=== PATIENT | male | born 1955 | race Caucasian/White ===

== ENCOUNTER 2023-02-24 11:04 | Inpatient (IN) | payer MEDICARE, SELFPAY ==
[2023-02-24] VITALS (23 sets, daily range): BP systolic 115–162; BP diastolic 74–113; PULSE 81–117; RESP 15–28; TEMP 36.4–36.8; O2SAT 90–98; BMI 20.3
--- NOTE | 2023-02-24 11:10 | XRR_ITS ---
PROCEDURE INFORMATION: Exam: XR Chest Exam date and time: 02/24/2023 11:22 AM Age: 67 years old Clinical indication: Shortness of breath; Additional info: SOB TECHNIQUE: Imaging protocol: Radiologic exam of the chest. Views: 1 view. Total images: 3 COMPARISON: No relevant prior studies available. FINDINGS: Lungs: Hyperinflation with prominent interstitial markings suggesting COPD changes. Pleural spaces: Unremarkable. No pleural effusion. No pneumothorax. Heart/Mediastinum: Unremarkable. No cardiomegaly. Vasculature: Atherosclerosis is evident. Bones/joints: Old right rib fractures are evident. Diffuse osteopenia noted. XR/XR chest 1V portable [id number] IMPRESSION: 1. Hyperinflation with prominent interstitial markings suggesting COPD changes. 2. No acute cardiopulmonary process.
[2023-02-24 11:52] LABS: Basophils # 0.1 10^3/uL (0.0-0.1); Basophils % 0.6 %; Eosinophils # 0.1 10^3/uL (0.0-0.8); Eosinophils % 1.1 %; Lymphocytes # 1.2 10^3/uL (0.8-4.8); Lymphocytes % 10.2 %; Mean Corpuscular HGB Conc 32.5 g/dL (30.0-36.0); Mean Corpuscular Hemoglobin 30.3 pg (28.0-34.0); Mean Corpuscular Volume 93.2 fl (80-94); Monocytes # 0.8 10^3/uL (0.2-0.9); Neutrophils # 9.38 10^3/uL (1.8-7.7); Neutrophils % 80.6 %; Nucleated Red Blood Cells % 0 %; Platelet Count 305 10^3/cmm (130-400); Red Blood Count 4.29 10^6/uL (4.1-5.3); Red Cell Distribution Width 13.4 % (12.1-15.1); White Blood Count 11.6 10^3/uL (4.0-10.0)
--- NOTE | 2023-02-24 12:20 | ECG_ITS ---
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 Measurements Intervals [place] Rate: 111 P: 75 HI: 115 QRS: 85 QRSD: 93 T: 81 QT: 349 QTc: 476 Interpretive Statements SINUS TACHYCARDIA WITH SHORT HI INTERVAL ABNORMAL RHYTHM ECG No previous ECG available for comparison Electronically Signed On 02-25-2023 0:19:14 CDT by Scott Alonso M.D. [id number]
[2023-02-24 12:28] LABS: Alanine Aminotransferase 10 U/L (0-41); Albumin Level 3.5 g/dL (3.5-5.2); Alkaline Phosphatase 101 U/L (40-130); Anion Gap 13.7 (5-19); Aspartate Amino Transferase 21 U/L (0-40); Blood Urea Nitrogen 14 mg/dL (8-23); Calcium 9.3 mg/dL (8.5-10.5); Carbon Dioxide 29 mmol/L (22-29); Chloride 102 mmol/L (98-107); Globulin 2.7 g/dL (1.3-4.6); Glomerular Filtration Rate 96.7 mL/min (90-130); Glucose 146 mg/dL (65-115); NT Pro B Type Natriuretic Pept 339 pg/mL (0-125); Osmolality Calculated 295 mOsm/kg (285-295); Potassium 3.7 mmol/L (3.5-5.1); Sodium 141 mmol/L (136-145); Total Bilirubin 0.4 mg/dL (0.15-1.2); Total Protein 6.2 g/dL (6.6-8.7)
--- NOTE | 2023-02-24 12:28 | PC.PHAR ---
pt states he only uses the 2 inhalers entered-the spiriva handihaler is not filled under pts names rx filled 09/25/22 for sue porter 1c daily pt states he uses up to tid-no meds pull up on ext med history for the pt
[2023-02-24 12:38] LABS: ABG PCO2 43.9 mmHg (35-45); ABG PH Result 7.43 (7.35-7.45); Base Excess ABG 3.8 mmol/L (-2.0-2.0); Blood Gas Allen Test Pos; Blood Gas Operator Identificat MONRO; Blood Gas Sample Site Brachial, right; Blood Gas Sample Type Arterial; Carboxyhemoglobin 1.7 %THgb (0.4-20.1); HCO3 ABG 28.8 mmol/L (22-26); HGB O2 Sat 93.1 % (95-100); Ionized Calcium Level - ABG 1.2 mmol/L (1.1-1.4); Methemoglobin 0.7 % (0.4-1.5); Oxygen Device ROOM AIR; Oxygen Saturation ABG 95.3; PO2 ABG 72.1 mmHg (80.0-100.0); Potassium Level - ABG 3.4 mmol/L (3.5-5.0)
--- NOTE | 2023-02-24 12:41 | ED_ITS ---
HPI - SOB/Dyspnea General: Chief Complaint: Shortness of Breath/Dyspnea Stated Complaint: SOB Time Seen by Provider: 02/24/23 11:43 Source: patient Mode of arrival: ambulatory History of Present Illness: HPI Narrative: 67-year-old male presents to the emergency room with complaints of shortness of breath. He states he is had COPD for 15 years he is only using Primatene Mist he has some Spiriva from her friend's prescription but he has not been using it regularly. He is not on any other medications. MD elicited complaint: shortness of breath and cough Pertinent past history: COPD Onset (ago): day(s) Timing: constant Severity: moderate Exacerbating factors: exertion and coughing Relieving factors: rest and bronchodilators Known history of: COPD Associated symptoms: Deny abdominal pain, chest congestion, chest pain, cough, diaphoresis, dizziness, extremity pain, fever(s), hemoptysis, lightheadedness, myalgias, nausea, palpitations, paresthesias, polydipsia, polyuria, rash, sense of impending doom, syncope or vomiting Treatment prior to arrival: bronchodilator (Primatene Mist) Review of Systems Const: Denies: fever(s) or diaphoresis Card: Reports: dyspnea on exertion; Denies: chest pain, palpitations, lightheadedness or syncope Resp: Reports: dyspnea, non-productive cough and wheezing; Denies: hemoptysis or chest congestion GI: Denies: abdominal pain, nausea or vomiting Musc: Denies: extremity pain Neuro: Denies: dizziness Endo: Denies: polyuria or polydipsia [facility] ED PFSH: Medical History (Updated 02/24/23 @ 15:49 by Gagandeep Calvert DO) COPD (chronic obstructive pulmonary disease) Social History (Updated 02/24/23 @ 12:44 by Gagandeep Calvert DO) Smoking and tobacco status: current every day smoker Physical Exam Const: GENERAL APPEARANCE: cooperative ORIENTATION/CONSCIOUSNESS: Yes awake, Yes oriented to person, Yes oriented to place and Yes oriented to time HENMT: COMMON NORMALS: normocephalic, atraumatic and hearing grossly normal bilaterally HEAD & SCALP: normocephalic and atraumatic Resp: COMMON NORMALS: normal respiratory effort, No retractions and No use of accessory muscles AUSCULTATION: rhonchi and wheezes Cardio: COMMON NORMALS: regular rate, regular rhythm and No murmurs present (Cardio) RATE: regular rate RHYTHM: regular rhythm GI: COMMON NORMALS: Soft to palpation and No hepatosplenomegaly present AUSCULTATION: Yes normoactive bowel sounds PALPATION: Yes Soft to palpation, No Tenderness to palpation present (GI), No Guarding due to palpation present (GI) and Yes No hepatosplenomegaly present Extremity: COMMON NORMALS: normal to inspection, capillary refill normal, no clubbing, cyanosis or edema, no calf tenderness and no pedal edema Neuro: SENSORIUM/ORIENTATION: Yes oriented to person, Yes oriented to place and Yes oriented to time Skin: COMMON NORMALS: no rashes or lesions noted GENERAL SKIN EXAM: no rashes or lesions noted Course Vital Signs: Vital signs: Vital Signs Temperature 97.5 F L 02/24/23 11:34 Pulse Rate 87 02/24/23 15:30 Respiratory Rate 19 H 02/24/23 15:30 Blood Pressure 149/97 02/24/23 15:30 Pulse Oximetry 92 02/24/23 15:30 Oxygen Delivery Me thod Room Air 02/24/23 12:42 MDM - SOB/Dyspnea Medical Decision Making Exacerbation of COPD he is not requiring oxygen. He had moderate improvement with his steroids and nebulizer. He is on no maintenance program as an outpatient he is only been using Primatene Mist for rescue. Suspect he will need home O2 however when we tried to evaluate him he was not able to get up and walk. Patient be admitted for COPD exacerbation discussed Dr. Michaels orders written. Will cover with antibiotics but there is no evidence of pneumonia or pneumothorax on the chest x-ray. EKG shows no acute changes. Medical Records I reviewed the patient's medical records. Lab Data I reviewed the patient's lab results. 02/24/23 11:38 02/24/23 11:38 Labs/Radiology: Radiology Impressions Chest X-Ray 02/24/23 11:10 IMPRESSION: 1. Hyperinflation with prominent interstitial markings suggesting COPD changes. 2. No acute cardiopulmonary process. Laboratory Results WBC 11.6 10^3/uL (4.0-10.0) H 02/24/23 11:38 RBC 4.29 10^6/uL (4.1-5.3) 02/24/23 11:38 Hgb 13.0 g/dL (11.7-16.6) 02/24/23 11:38 Hct 40.0 % (42.0-52.0) L 02/24/23 11:38 MCV 93.2 fl (80-94) 02/24/23 11:38 MCH 30.3 pg (28.0-34.0) 02/24/23 11:38 MCHC 32.5 g/dL (30.0-36.0) 02/24/23 11:38 RDW 13.4 % (12.1-15.1) 02/24/23 11:38 Plt Count 305 10^3/cmm (130-400) 02/24/23 11:38 MPV 9.0 fL (7.4-10.4) 02/24/23 11:38 Neut % (Auto) 80.6 % 02/24/23 11:38 Lymph % (Auto) 10.2 % 02/24/23 11:38 Richardson % (Auto) 7.0 % 02/24/23 11:38 Eos % (Auto) 1.1 % 02/24/23 11:38 Baso % (Auto) 0.6 % 02/24/23 11:38 Neut # (Auto) 9.38 10^3/uL (1.8-7.7) H 02/24/23 11:38 Lymph # (Auto) 1.2 10^3/uL (0.8-4.8) 02/24/23 11:38 Richardson # (Auto) 0.8 10^3/uL (0.2-0.9) 02/24/23 11:38 Eos # (Auto) 0.1 10^3/uL (0.0-0.8) 02/24/23 11:38 Baso # (Auto) 0.1 10^3/uL (0.0-0.1) 02/24/23 11:38 Nucleated RBC % (auto) 0 % 02/24/23 11:38 Nucleated RBCs # 0.0 /100WBC 02/24/23 11:38 Specimen Type Arterial 02/24/23 12:25 Sample Site Brachial, right 02/24/23 12:25 ABG pH 7.43 (7.35-7.45) 02/24/23 12:25 ABG pCO2 43.9 mmHg (35-45) 02/24/23 12:25 ABG pO2 72.1 mmHg (80.0-100.0) L 02/24/23 12:25 ABG HCO3 28.8 mmol/L (22-26) H 02/24/23 12:25 ABG O2 Saturation 95.3 02/24/23 12:25 ABG Base Excess 3.8 mmol/L (-2.0-2.0) H 02/24/23 12:25 Ivan Test Pos 02/24/23 12:25 A-a O2 Gradient 3.0 mmHg (5-10) L 02/24/23 12:25 Hematocrit 40.0 % (42-52) L 02/24/23 12:25 Hgb O2 Saturation 93.1 % (95-100) L 02/24/23 12:25 Carboxyhemoglobin 1.7 %THgb (0.4-20.1) 02/24/23 12:25 Methemoglobin 0.7 % (0.4-1.5) 02/24/23 12:25 Total Hemoglobin 13.0 g/dL (14-18) L 02/24/23 12:25 Sodium 141.0 mmol/L (131-143) 02/24/23 12:25 Potassium 3.4 mmol/L (3.5-5.0) L 02/24/23 12:25 Glucose 132.0 mg/dL (70-115) H 02/24/23 12:25 Ionized Calcium 1.2 mmol/L (1.1-1.4) 02/24/23 12:25 O2 Delivery Device Room air 02/24/23 12:25 FiO2 21.0 % 02/24/23 12:25 Transcription Coordinator ID Monro 02/24/23 12:25 Sodium 141 mmol/L (136-145) 02/24/23 11:38 Potassium 3.7 mmol/L (3.5-5.1) 02/24/23 11:38 Chloride 102 mmol/L (98-107) 02/24/23 11:38 Carbon Dioxide 29 mmol/L (22-29) 02/24/23 11:38 Anion Gap 13.7 (5-19) 02/24/23 11:38 BUN 14 mg/dL (8-23) 02/24/23 11:38 Creatinine 0.8 mg/dL (0.7-1.2) 02/24/23 11:38 GFR Calculation 96.7 mL/min (90-130) 02/24/23 11:38 Glucose 146 mg/dL (65-115) H 02/24/23 11:38 Calculated Osmolality 295 mOsm/kg (285-295) 02/24/23 11:38 Calcium 9.3 mg/dL (8.5-10.5) 02/24/23 11:38 Total Bilirubin 0.4 mg/dL (0.15-1.2) 02/24/23 11:38 AST 21 U/L (0-40) 02/24/23 11:38 ALT 10 U/L (0-41) 02/24/23 11:38 Alkaline Phosphatase 101 U/L (40-130) 02/24/23 11:38 NT-Pro-B Natriuret Pep 339 pg/mL (0-125) H 02/24/23 11:38 Total Protein 6.2 g/dL (6.6-8.7) L 02/24/23 11:38 Albumin 3.5 g/dL (3.5-5.2) 02/24/23 11:38 Globulin 2.7 g/dL (1.3-4.6) 02/24/23 11:38 Urine Color Yellow (Yellow) 02/24/23 13:10 Urine Appearance Clear (CLEAR) 02/24/23 13:10 Urine pH 6 (5-7) 02/24/23 13:10 Ur Specific [place] 1.020 (1.005-1.030) 02/24/23 13:10 Urine Protein Neg (Negative) 02/24/23 13:10 Urine Glucose (UA) Norm (Normal) 02/24/23 13:10 Urine Ketones Negative (Negative) 02/24/23 13:10 Urine Blood 2+ (Negative) H 02/24/23 13:10 Urine Nitrate Negative (Negative) 02/24/23 13:10 Urine Bilirubin Neg (Negative) 02/24/23 13:10 Urine Urobilinogen Norm mg/dL (Negative) 02/24/23 13:10 Ur Leukocyte Esterase Negative (Negative) 02/24/23 13:10 Urine RBC None /hpf (0-2) 02/24/23 13:10 Urine WBC Rare /hpf (0-5) 02/24/23 13:10 Ur Squamous Epith Cells None /hpf (0-5) 02/24/23 13:10 Amorphous Sediment Not Reportable 02/24/23 13:10 Urine Bacteria Trace /hpf (NONE) 02/24/23 13:10 Discharge Plan Discharge Patient Disposition: Admitted As Inpatient Clinical Impression: Acute exacerbation of chronic obstructive airways disease Prescriptions: No Action Spiriva with HandiHaler 18 mcg Capsule, W/Inhalation Device 1 cap INHALATION .UP TO TID PHARM COM Primatene Mist 0.125 mg/actuation Hfa Aerosol Inhaler 1 puff INHALATION Q4H PRN (Reason: unknown) Rx Instructions: may repeat once after 1 minute; do not exceed 8 inhalations per 24 hrs Patient Instructions: Opioid Safety, Pain Management Coding Level of Care Code ED Waterproofing Mixer for 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
[2023-02-24] MEDS: ipratropium-albuterol 3 mL Neb INHALATION (12:42)
[2023-02-24] MEDS: sodium chloride 0.9% 1,000 ML 999 ML IV (13:12)
--- NOTE | 2023-02-24 13:17 | PC.NURSE ---
Pt hooked up to continuous bedside cardiac monitoring.
[2023-02-24 14:15] LABS: Add Urine Microscopic? YES; Bilirubin Urine Neg (Negative); Blood Urine 2+ (Negative); Glucose Urine UA Norm (Normal); Ketones Urine Negative (Negative); Leukocyte Esterase Urine Negative (Negative); Nitrate Urine Negative (Negative); Protein Urine Neg (Negative); Urine Appearance Clear (CLEAR); Urine Color Yellow (Yellow); Urobilinogen Urine Norm (Negative); pH Urine 6 (5-7)
[2023-02-24 14:29] LABS: WBC Urine RARE /hpf (0-5)
[2023-02-24 14:30] LABS: Bacteria Urine TRACE /hpf
--- NOTE | 2023-02-24 16:29 | PM.HP ---
Providers/Chief Complaint Admitting Physician: Zoya Michaels MD Chief Complaint: SOB History of Present Illness Axel Landry is a 67 year old homeless male who presented to the hospital with 3 to 4 days of worsening cough, dyspnea. States that at baseline he has COPD and he has a Spiriva inhaler which has not been helping him. He is a chronic smoker. Has a past history of COPD. Denies any fever or chills. Denies any chest pain. Denies any past history of PE. ABG performed today 7.4 days/43.9/72.1/28.8. No orthopnea or PND. States that currently he is not able to even walk 10 feet without getting short of breath. Has a new oxygen requirement today of 2 L/min. Review of Systems General: Reports: 10 or more systems reviewed and unremarkable except in HPI and below Const: Denies: fever(s), chills or body aches Eyes: Denies: change in vision, blurry vision or photophobia ENMT: Reports: hoarseness; Denies: throat pain, enlarged tonsils, odynophagia or nasal congestion Card: Denies: chest pain, palpitations, irregular heart rhythm, edema, swelling of feet/ankles, lightheadedness, pre-syncope, dyspnea on exertion or orthopnea Resp: Denies: dyspnea, productive cough, non-productive cough, wheezing, stridor, pain on inspiration, change in phlegm color, hemoptysis or chest congestion GI: Denies: abdominal pain, nausea, vomiting, hematemesis, coffee ground emesis, dysphagia, heartburn, diarrhea, constipation, GI cramping, change in stool character, hematochezia or melena : Denies: flank pain, dysuria, urinary frequency, urinary urgency, urinary hesitancy or hematuria Musc: Denies: neck pain, back pain, extremity pain, joint swelling, joint warmth or deformity Neuro: Denies: headache(s), numbness in extremities, weakness in extremities, sensory changes, difficulty walking, frequent falls, dizziness, vertigo, behavioral changes, Slurred speech present or seizure-like activity Psych: Denies: anxiety, depression, suicidal ideation or homicidal ideation Endo: Denies: polyuria, polydipsia, tired all the time, cold intolerance or hot flashes Adrian/Lymph: Denies: easy bruising or easy bleeding Medications/Allergies Home Medications Medication Instructions Recorded Confirmed Last Taken Type epinephrine 0.125 mg/actuation 1 puff inhalation Q4H PRN unknown 02/24/23 02/24/23 Unknown History aerosol inhaler (Primatene Mist) tiotropium bromide 18 mcg capsule 1 cap inhalation .UP TO TID PHARM 02/24/23 02/24/23 Unknown History with inhalation device (Spiriva COM with HandiHaler) Allergies Allergy/AdvReac Type Severity Reaction Status Date / Time No Known Allergies Allergy Verified 02/24/23 11:34 PFSH Acute PFSH: Medical History COPD (chronic obstructive pulmonary disease) Social History Smoking and tobacco status: current every day smoker Vitals/I&O/Wt Last Vital Signs Temp 97.5 F L 02/24/23 11:34 Pulse 84 02/24/23 15:45 Resp 23 H 02/24/23 15:45 BP 134/80 02/24/23 15:45 Pulse Ox 93 02/24/23 15:45 O2 Del Method Room Air 02/24/23 12:42 Weight last 48 hrs Weight 58.967 kg Physical Exam Narrative: General: No acute distress, AO x3 disheveled male HEENT: PERRLA, pupils bilaterally equal and reactive, pallors not present Chest: Scattered wheezing to auscultation bilaterally CVS: S1-S2 regular, no murmurs, no tachycardia, no gallops, no rubs Abdomen: Soft, nontender, no organomegaly, bowel sounds present Neuro: No focal deficits, no facial deformity, AO x3, power 5/5 in all limbs Data 02/24/23 11:38 02/24/23 11:38 A&P Assessment and plan (1) Acute exacerbation of chronic obstructive airways disease: Patient presenting today with worsening dyspnea, shortness of breath over the last 4 to 5 days. Denies any fever. Chest x-ray does not show any gross consolidation. Noted to have hyperinflated lungs with prominent bronchial markings per my assessment, most likely to be emphysematous changes. He continues to smoke. Admitted in view of acute on chronic COPD exacerbation. Scheduled nebulization with DuoNeb and budesonide. Dexamethasone 4 mg IV every 12 hours. Check D-dimer. Check EKG Denies any current chest pain. Nicotine patch due to history of nicotine dependence. Attestations Medical Necessity Statement*: Anticipate less than 2 midnight stay for COPD exacerbation Coding Level of Care Code Acute Code for [facility] Diagnoses Acute exacerbation of chronic obstructive airways disease J44.1
--- NOTE | 2023-02-24 17:18 | PC.NURSE ---
CIGARETTES AND [address] MAGISTRATE LOCKED IN [facility]
--- NOTE | 2023-02-24 17:30 | ECG_ITS ---
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 Measurements Intervals [place] Rate: 87 P: 86 NV: 149 QRS: 72 QRSD: 92 T: 79 QT: 373 QTc: 451 Interpretive Statements SINUS RHYTHM WITH SINUS ARRHYTHMIA INTERPRETATION BASED ON A DEFAULT AGE OF 40 YEARS Compared to ECG 02/24/2023 12:27:17 Sinus tachycardia no longer present Short NV interval no longer present Electronically Signed On 02-25-2023 14:21:04 CDT by Nathan Covarrubias M.D. [id number]
[2023-02-24 17:38] LABS: D Dimer 0.69 ug/mIFEU (0-0.59)
[2023-02-24 17:59] LABS: Troponin T (5th) Once 9 ng/L (0-15)
[2023-02-24] MEDS: sodium chloride 0.9% 1,000 ML 100 ML IV (18:09)
--- NOTE | 2023-02-24 18:43 | PC.NURSE ---
PATIENT HAS DONE WELL SINCE ARRIVING TO THE FLOOR. TOLERATING DIET. CURRENTLY ON 2L OF OXYGEN. RESTING IN BED WATCHING TV.
[2023-02-24 19:14] LABS: Adenovirus Not Detected (NOT DETECT); Chlamydia Pneumoniae Not Detected (NOT DETECT); Coronavirus 229E,HKU1,NL63,OC4 Not Detected (NOT DETECT); Human Metapneumovirus Not Detected (NOT DETECT); Human Rhinovirus/Enterovirus Not Detected (NOT DETECT); Influenza A Not Detected (NOT DETECT); Influenza A H1 Not Detected (NOT DETECT); Influenza A H1-2009 Not Detected (NOT DETECT); Influenza A H3 Not Detected (NOT DETECT); Influenza B Not Detected (NOT DETECT); Mycoplasma Pneumoniae Not Detected (NOT DETECT); Parainfluenza Virus Type 1 Not Detected (NOT DETECT); Parainfluenza Virus Type 2 Not Detected (NOT DETECT); Parainfluenza Virus Type 3 Not Detected (NOT DETECT); Parainfluenza Virus Type 4 Not Detected (NOT DETECT); Respiratory Syncytial Virus A Not Detected (NOT DETECT); Respiratory Syncytial Virus B Not Detected (NOT DETECT); SARS-COV-2 Not Detected (NOT DETECT)
[2023-02-25] VITALS (11 sets, daily range): BP systolic 110–129; BP diastolic 65–86; PULSE 76–109; RESP 15–24; TEMP 36.4–36.8; O2SAT 95–99
[2023-02-25] MEDS: dexamethasone 4 mg/mL INJ IVP ×2 (01:26→14:35)
[2023-02-25] MEDS: sodium chloride 0.9% 1,000 ML 100 ML IV (01:27)
--- NOTE | 2023-02-25 04:24 | PC.NURSE ---
LEGAL DIRECTOR in patient's room to do vital signs. Patient states to LEGAL DIRECTOR how many more times are you gonna come in here and do these damn tests?
[2023-02-25 05:32] LABS: Basophils % 0.1 %; Hematocrit 34.1 % (42.0-52.0); Lymphocytes # 0.7 10^3/uL (0.8-4.8); Lymphocytes % 9.8 %; Mean Corpuscular HGB Conc 32.3 g/dL (30.0-36.0); Mean Corpuscular Hemoglobin 30.5 pg (28.0-34.0); Mean Corpuscular Volume 94.5 fl (80-94); Mean Platelet Volume 9.3 fL (7.4-10.4); Monocytes # 0.1 10^3/uL (0.2-0.9); Monocytes % 1.6 %; Neutrophils % 87.6 %; Nucleated Red Blood Cells % 0 %; Platelet Count 289 10^3/cmm (130-400); Red Blood Count 3.61 10^6/uL (4.1-5.3); Red Cell Distribution Width 13.7 % (12.1-15.1); White Blood Count 6.9 10^3/uL (4.0-10.0)
[2023-02-25 06:00] LABS: Alanine Aminotransferase 7 U/L (0-41); Albumin Level 2.8 g/dL (3.5-5.2); Alkaline Phosphatase 77 U/L (40-130); Aspartate Amino Transferase 14 U/L (0-40); Blood Urea Nitrogen 13 mg/dL (8-23); Calcium 8.2 mg/dL (8.5-10.5); Carbon Dioxide 25 mmol/L (22-29); Chloride 109 mmol/L (98-107); Globulin 1.9 g/dL (1.3-4.6); Glomerular Filtration Rate 134.8 mL/min (90-130); Glucose 114 mg/dL (65-115); Osmolality Calculated 293 mOsm/kg (285-295); Sodium 141 mmol/L (136-145); Total Bilirubin 0.3 mg/dL (0.15-1.2); Total Protein 4.7 g/dL (6.6-8.7)
[2023-02-25] MEDS: budesonide 0.5 mg/2 mL Neb INHALATION ×2 (07:39→20:14)
[2023-02-25] MEDS: ipratropium-albuterol 3 mL Neb INHALATION ×4 (07:39→20:14)
[2023-02-25] MEDS: nicotine 21 mg Patch 1 PATCH TRANSDERMA (10:43)
[2023-02-25] MEDS: pantoprazole DR 40 mg Tablet PO (10:43)
[2023-02-25] MEDS: azithromycin 250 mg Tablet 500 MG PO (10:48)
--- NOTE | 2023-02-25 22:47 | PM.PN ---
Subjective Subjective: no new complaints today, continues to have wheezing and bouts of cough. Still with significant wheezing Vitals/I&O/Wt Last Vital Signs Temp 98.2 F 02/25/23 19:59 Pulse 99 02/25/23 20:19 Resp 17 02/25/23 20:14 BP 120/65 02/25/23 19:59 Pulse Ox 95 02/25/23 20:14 O2 Del Method Nasal Cannula 02/25/23 20:14 O2 Flow Rate 2 02/25/23 20:14 02/25/23 02/25/23 02/25/23 06:59 14:59 22:59 Intake Total 730 / 1950 1360 / 1360 Output Total 200 / 300 100 / 100 225 / 325 Balance 530 / 1650 1260 / 1260 -225 / 1035 Weight last 48 hrs Weight 58.967 kg Physical Exam Narrative: General: No acute distress, AO x3 HEENT: PERRLA, pupils bilaterally equal and reactive, pallors not present Chest: wheezing to exam B/L CVS: S1-S2 regular, no murmurs, no tachycardia, no gallops, no rubs Abdomen: Soft, nontender, no organomegaly, bowel sounds present Neuro: No focal deficits, no facial deformity, AO x3, power 5/5 in all limbs Data 02/25/23 04:34 02/25/23 04:34 A&P Assessment and plan (1) Acute exacerbation of chronic obstructive airways disease: Patient presenting with worsening dyspnea, shortness of breath over the last 4 to 5 days. Denies any fever. Chest x-ray does not show any gross consolidation. Noted to have hyperinflated lungs with prominent bronchial markings per my assessment, most likely to be emphysematous changes. He continues to smoke. Admitted in view of acute on chronic COPD exacerbation. Scheduled nebulization with DuoNeb and budesonide to continue Dexamethasone 4 mg IV every 12 hours to continue Age appropriate D-dimer EKG without any acute ST-T wave changes Nicotine patch due to history of nicotine dependence. Add ceftriaxone 1g iv q24h for possibility of acute bronchitis contributing Needs further iv abx, iv steroids Attestations Medical Necessity Statement*: continued admission for iv steroids, abx and scheduled nebulization Coding Level of Care Code Acute Code for g [facility]wd Diagnoses Acute exacerbation of chronic obstructive airways disease J44.1
[2023-02-25] MEDS: cefTRIAXone 1,000 MG in sodium chloride 0.9% (plus) 50 ML 100 MG IV (23:28)
[2023-02-25] MEDS: benzonatate 100 mg Capsule PO (23:35)
[2023-02-25] MEDS: guaiFENesin-dextromethorphan UDC 10 mL 5 ML PO (23:35)
[2023-02-26] VITALS (9 sets, daily range): BP systolic 120–160; BP diastolic 79–95; PULSE 77–108; RESP 16–26; TEMP 36.4; O2SAT 93–98
[2023-02-26] MEDS: dexamethasone 4 mg/mL INJ IVP ×2 (01:41→12:40)
[2023-02-26] MEDS: guaiFENesin-dextromethorphan UDC 10 mL 5 ML PO ×3 (08:16→20:12)
[2023-02-26] MEDS: benzonatate 100 mg Capsule PO ×2 (08:16→16:09)
[2023-02-26] MEDS: nicotine 21 mg Patch 1 PATCH TRANSDERMA (08:17)
[2023-02-26] MEDS: azithromycin 250 mg Tablet 500 MG PO (08:17)
[2023-02-26] MEDS: pantoprazole DR 40 mg Tablet PO (08:17)
[2023-02-26] MEDS: ipratropium-albuterol 3 mL Neb INHALATION ×4 (08:58→21:17)
[2023-02-26] MEDS: budesonide 0.5 mg/2 mL Neb INHALATION ×2 (08:58→21:17)
--- NOTE | 2023-02-26 16:11 | PC.NURSE ---
Patient refused to let LOGISTICS MANAGEMENT SPECIALIST or nurse do 1600 vitals
--- NOTE | 2023-02-26 16:21 | PM.PN ---
Subjective Subjective: he continues to have significant wheezing. he is more short of breath today. Medications: Reviewed: Yes Vitals/I&O/Wt Last Vital Signs Temp 97.5 F L 02/26/23 12:00 Pulse 105 H 02/26/23 12:00 Resp 20 H 02/26/23 12:00 BP 142/92 02/26/23 12:00 Pulse Ox 93 02/26/23 12:00 O2 Del Method Nasal Cannula 02/26/23 12:00 O2 Flow Rate 2 02/26/23 11:55 02/26/23 02/26/23 02/26/23 06:59 14:59 22:59 Intake Total 50 / 1410 480 / 480 Output Total 400 / 725 200 / 200 Balance -350 / 685 280 / 280 Physical Exam Narrative: General: No acute distress, AO x3 HEENT: PERRLA, pupils bilaterally equal and reactive, pallors not present Chest: wheezing to exam B/L CVS: S1-S2 regular, no murmurs, no tachycardia, no gallops, no rubs Abdomen: Soft, nontender, no organomegaly, bowel sounds present Neuro: No focal deficits, no facial deformity, AO x3, power 5/5 in all limbs Data 02/25/23 04:34 02/25/23 04:34 A&P Assessment and plan (1) Acute exacerbation of chronic obstructive airways disease: Patient presenting with worsening dyspnea, shortness of breath Chest x-ray does not show any gross consolidation. Noted to have hyperinflated lungs with prominent bronchial markings per my assessment, most likely to be emphysematous changes. He continues to smoke. Admitted in view of acute on chronic COPD exacerbation. Continues to have significant wheezing Scheduled nebulization with DuoNeb and budesonide to continue add magnesium x 1 today Trop baseline normal, no acute EKG changes Dexamethasone 4 mg IV every 12 hours---> increase to 8mg iv q12h Age appropriate D-dimer EKG without any acute ST-T wave changes Nicotine patch due to history of nicotine dependence. Continue ceftriaxone 1g iv q24h for possibility of acute bacterial bronchitis Attestations Medical Necessity Statement*: Needs further iv abx, iv steroids Coding Level of Care Code Acute Code for [facility] Fwd Diagnoses Acute exacerbation of chronic obstructive airways disease J44.1
[2023-02-26] MEDS: dexamethasone 10 mg/mL INJ 8 MG IVP (17:00)
[2023-02-26] MEDS: cefTRIAXone 1,000 MG in sodium chloride 0.9% (plus) 50 ML 100 MG IV (22:31)
[2023-02-27] VITALS (9 sets, daily range): BP systolic 130–145; BP diastolic 77–88; PULSE 82–95; RESP 15–18; TEMP 36.4–36.9; O2SAT 87–98
[2023-02-27] MEDS: dexamethasone 10 mg/mL INJ 8 MG IVP (04:51)
[2023-02-27] MEDS: budesonide 0.5 mg/2 mL Neb INHALATION (08:45)
[2023-02-27] MEDS: ipratropium-albuterol 3 mL Neb INHALATION ×2 (08:46→11:54)
[2023-02-27] MEDS: nicotine 21 mg Patch 1 PATCH TRANSDERMA (09:35)
[2023-02-27] MEDS: azithromycin 250 mg Tablet 500 MG PO (09:36)
[2023-02-27] MEDS: pantoprazole DR 40 mg Tablet PO (09:36)
[2023-02-27] MEDS: guaiFENesin-dextromethorphan UDC 10 mL 5 ML PO (09:42)
[2023-02-27] MEDS: benzonatate 100 mg Capsule PO (09:43)
--- NOTE | 2023-02-27 15:48 | PM.DCS ---
Discharge Providers Date of Admission: 02/26/23 16:22 Date of Discharge: February 27, 2023 Attending Provider at Admission: Zoya Michaels MD Attending Provider at Discharge: Zoya Michaels MD Diagnoses at Discharge Discharge Diagnosis (1) Acute exacerbation of chronic obstructive airways disease: Status: Acute Reason for Visit Reason for Visit: SOB Brief History: Axel Landry is a 67 year old homeless male who presented to the hospital with 3 to 4 days of worsening cough, dyspnea.? States that at baseline he has COPD and he has a Spiriva inhaler which has not been helping him.? He is a chronic smoker.? Has a past history of COPD.? Denies any fever or chills.? Denies any chest pain.? Denies any past history of PE. currently he is not able to even walk 10 feet without getting short of breath.? Has a new oxygen requirement today of 2 L/min. Hospital Course Hospital Course He was admitted for acute exacerbation of chronic obstructive airways disease. Chest x-ray does not show any gross consolidation. Noted to have hyperinflated lungs with prominent bronchial markings per my assessment, most likely to be emphysematous changes. He continues to smoke. He received treatment with nebulization with DuoNeb and budesonide scheduled, iv abx for possibility of bacterial bronchitis and iv steroids. Trop baseline normal, no acute EKG changes Age appropriate D-dimer EKG without any acute ST-T wave changes His wheezing is now much improved. He is being [facility] today [facility]. Home oxygen evaluation was completed. Meds to beds were arranged. Physical Exam Narrative: General: No acute distress, AO x3 HEENT: PERRLA, pupils bilaterally equal and reactive, pallors not present Chest: Normal vesicular breath sounds, no added sounds, equal good air entry bilaterally CVS: S1-S2 regular, no murmurs, no tachycardia, no gallops, no rubs Abdomen: Soft, nontender, no organomegaly, bowel sounds present Neuro: No focal deficits, no facial deformity, AO x3, power 5/5 in all limbs Discharge Data Studies Completed and Pending Completed Studies During Hospitalization Category Date Time Status XR chest 1V portable [id number] Stat Exams 02/24/23 11:10 Completed Radiology Impressions Chest X-Ray 02/24/23 11:10 IMPRESSION: 1. Hyperinflation with prominent interstitial markings suggesting COPD changes. 2. No acute cardiopulmonary process. Laboratory Results WBC 6.9 10^3/uL (4.0-10.0) 02/25/23 04:34 RBC 3.61 10^6/uL (4.1-5.3) L 02/25/23 04:34 Hgb 11.0 g/dL (11.7-16.6) L 02/25/23 04:34 Hct 34.1 % (42.0-52.0) L 02/25/23 04:34 MCV 94.5 fl (80-94) H 02/25/23 04:34 MCH 30.5 pg (28.0-34.0) 02/25/23 04:34 MCHC 32.3 g/dL (30.0-36.0) 02/25/23 04:34 RDW 13.7 % (12.1-15.1) 02/25/23 04:34 Plt Count 289 10^3/cmm (130-400) 02/25/23 04:34 MPV 9.3 fL (7.4-10.4) 02/25/23 04:34 Neut % (Auto) 87.6 % 02/25/23 04:34 Lymph % (Auto) 9.8 % 02/25/23 04:34 Gillespie % (Auto) 1.6 % 02/25/23 04:34 Eos % (Auto) 0.0 % 02/25/23 04:34 Baso % (Auto) 0.1 % 02/25/23 04:34 Neut # (Auto) 6.00 10^3/uL (1.8-7.7) 02/25/23 04:34 Lymph # (Auto) 0.7 10^3/uL (0.8-4.8) L 02/25/23 04:34 [place]illespie # (Auto) 0.1 10^3/uL (0.2-0.9) L 02/25/23 04:34 Eos # (Auto) 0.0 10^3/uL (0.0-0.8) 02/25/23 04:34 Baso # (Auto) 0.0 10^3/uL (0.0-0.1) 02/25/23 04:34 Nucleated RBC % (auto) 0 % 02/25/23 04:34 Nucleated RBCs # 0.0 /100WBC 02/25/23 04:34 D-Dimer 0.69 ug/mIFEU (0-0.59) H 02/24/23 11:38 Specimen Type Arterial 02/24/23 12:25 Sample Site Brachial, right 02/24/23 12:25 ABG pH 7.43 (7.35-7.45) 02/24/23 12:25 ABG pCO2 43.9 mmHg (35-45) 02/24/23 12:25 ABG pO2 72.1 mmHg (80.0-100.0) L 02/24/23 12:25 ABG HCO3 28.8 mmol/L (22-26) H 02/24/23 12:25 ABG O2 Saturation 95.3 02/24/23 12:25 ABG Base Excess 3.8 mmol/L (-2.0-2.0) H 02/24/23 12:25 Ivan Test Pos 02/24/23 12:25 A-a O2 Gradient 3.0 mmHg (5-10) L 02/24/23 12:25 Hematocrit 40.0 % (42-52) L 02/24/23 12:25 Hgb O2 Saturation 93.1 % (95-100) L 02/24/23 12:25 Carboxyhemoglobin 1.7 %THgb (0.4-20.1) 02/24/23 12:25 Methemoglobin 0.7 % (0.4-1.5) 02/24/23 12:25 Total Hemoglobin 13.0 g/dL (14-18) L 02/24/23 12:25 Sodium 141.0 mmol/L (131-143) 02/24/23 12:25 Potassium 3.4 mmol/L (3.5-5.0) L 02/24/23 12:25 Glucose 132.0 mg/dL (70-115) H 02/24/23 12:25 Ionized Calcium 1.2 mmol/L (1.1-1.4) 02/24/23 12:25 O2 Delivery Device Room air 02/24/23 12:25 FiO2 21.0 % 02/24/23 12:25 Seed District Sales Manager ID Monro 02/24/23 12:25 Sodium 141 mmol/L (136-145) 02/25/23 04:34 Potassium 4.0 mmol/L (3.5-5.1) 02/25/23 04:34 Chloride 109 mmol/L (98-107) H 02/25/23 04:34 Carbon Dioxide 25 mmol/L (22-29) 02/25/23 04:34 Anion Gap 11.0 (5-19) 02/25/23 04:34 BUN 13 mg/dL (8-23) 02/25/23 04:34 Creatinine 0.6 mg/dL (0.7-1.2) L 02/25/23 04:34 GFR Calculation 134.8 mL/min (90-130) H 02/25/23 04:34 Glucose 114 mg/dL (65-115) 02/25/23 04:34 Calculated Osmolality 293 mOsm/kg (285-295) 02/25/23 04:34 Calcium 8.2 mg/dL (8.5-10.5) L 02/25/23 04:34 Total Bilirubin 0.3 mg/dL (0.15-1.2) 02/25/23 04:34 AST 14 U/L (0-40) 02/25/23 04:34 ALT 7 U/L (0-41) 02/25/23 04:34 Alkaline Phosphatase 77 U/L (40-130) 02/25/23 04:34 Troponin T Gen 5 ng/L 9 ng/L (0-15) 02/24/23 11:38 NT-Pro-B Natriuret Pep 339 pg/mL (0-125) H 02/24/23 11:38 Total Protein 4.7 g/dL (6.6-8.7) L D 02/25/23 04:34 Albumin 2.8 g/dL (3.5-5.2) L 02/25/23 04:34 Globulin 1.9 g/dL (1.3-4.6) 02/25/23 04:34 Urine Color Yellow (Yellow) 02/24/23 13:10 Urine Appearance Clear (CLEAR) 02/24/23 13:10 Urine pH 6 (5-7) 02/24/23 13:10 Ur Specific [place] 1.020 (1.005-1.030) 02/24/23 13:10 Urine Protein Neg (Negative) 02/24/23 13:10 Urine Glucose (UA) Norm (Normal) 02/24/23 13:10 Urine Ketones Negative (Negative) 02/24/23 13:10 Urine Blood 2+ (Negative) H 02/24/23 13:10 Urine Nitrate Negative (Negative) 02/24/23 13:10 Urine Bilirubin Neg (Negative) 02/24/23 13:10 Urine Urobilinogen Norm mg/dL (Negative) 02/24/23 13:10 Ur Leukocyte Esterase Negative (Negative) 02/24/23 13:10 Urine RBC None /hpf (0-2) 02/24/23 13:10 Urine WBC Rare /hpf (0-5) 02/24/23 13:10 Ur Squamous Epith Cells None /hpf (0-5) 02/24/23 13:10 Amorphous Sediment Not Reportable 02/24/23 13:10 Urine Bacteria Trace /hpf (NONE) 02/24/23 13:10 Coronavirus 229E (PCR) Not detected (NOT DETECT) 02/24/23 17:12 SARS-CoV-2 (PCR) Not detected (NOT DETECT) 02/24/23 17:12 Vitals Last Vital Signs Temp 98.4 F 02/27/23 12:00 Pulse 92 02/27/23 12:01 Resp 18 02/27/23 12:01 BP 136/88 02/27/23 12:00 Pulse Ox 94 02/27/23 12:25 O2 Del Method Nasal Cannula 02/27/23 12:01 O2 Flow Rate 2 02/27/23 12:25 Discharge Plan Discharge Patient Disposition: Home Condition: Stable Prescriptions: New pantoprazole 40 mg Tablet,Delayed Release (Dr/Ec) 40 mg PO DAILY 30 Days Qty: 30 0RF Advair Diskus 500-50 mcg/dose blister with device 1 inh inhalation BID 30 Days Qty: 60 2RF prednisone 10 mg tablet See Taper PO DIRECTED Qty: 60 0RF Taper: predniSONE 60-10 60 mg Daily for 2 Days and 0 Hour 50 mg Daily for 2 Days and 0 Hour 40 mg Daily for 2 Days and 0 Hour 30 mg Daily for 2 Days and 0 Hour 20 mg Daily for 2 Days and 0 Hour 10 mg Daily for 2 Days and 0 Hour Rx Instructions: see taper instructions amoxicillin-pot clavulanate 875-125 mg tablet 1 tab PO BID 3 Days Qty: 6 0RF Changed Spiriva with HandiHaler 18 mcg Capsule, W/Inhalation Device 1 cap INHALATION DAILY 30 Days Qty: 30 2RF Discontinued Primatene Mist 0.125 mg/actuation Hfa Aerosol Inhaler 1 puff INHALATION Q4H PRN (Reason: unknown) Rx Instructions: may repeat once after 1 minute; do not exceed 8 inhalations per 24 hrs Discharge Orders: Discharge Order (Routine); Ordered 02/27/23 Ordered By: Zoya Michaels Other Ambulatory Orders: DME: Oxygen (Order) Location: None Selected Ordered By: Zoya Michaels Referrals: Sergei Ribeiro MD [Physician] - 04/13/23 11:15 am (COPD) Murphy Jack MD [Physician] - 7-10 days Discharge Diet: Usual diet Discharge Activity: Resume usual activity Patient Instructions: COPD, Prednisone (By mouth), Amoxicillin/Clavulanate Potassium (By mouth), Pantoprazole (By mouth), Fluticasone/Salmeterol (By breathing), COPD Stoplight, Opioid Safety, Pain Management Discharge Attestations Time Spent in Discharge Care*: greater than 30 min Quality Metrics Clinical Quality Measures [ No reported AMI, CVA or VTE this stay] Coding Level of Care Code Acute Code for Chg Fwd Diagnoses Acute exacerbation of chronic obstructive airways disease J44.1
--- NOTE | 2023-02-27 16:00 | PC.NURSE ---
IV removed in tact. Patient tolerated well. Patient is A&Ox3. Respirations even and non-labored on 3 liters NC. Patient verbalized understanding on how to take his new medications including how to taper the Predinsone. Patient assisted into wheel chiar and transported to private car.
== END 2023-02-27 16:00 | disposition home or self-care (01) | DRG 192 ==
LOC: ER 15:49 → MEDSURG 16:35
PROVIDERS: Admitting Provider Student in an Organized Health Care Education/Training Program; Emergency Provider Family Medicine; Visit Provider Student in an Organized Health Care Education/Training Program
DX: J44.1 Chronic obstructive pulmonary disease with (acute) exacerbation (principal); Z59.01 Sheltered homelessness; F17.200 Nicotine dependence, unspecified, uncomplicated
CPT/HCPCS: 36415; 36600; 71045; 80051; 80053; 81001; 82330; 82805; 83880; 84484; 85025; 85378; 87635; 93005; 94640; 94760; G0378; J0696; J1100; J2930; J7030; J7626; Q0144

== ENCOUNTER 2023-04-11 22:06 | Emergency (ER) | payer MEDICARE, SELFPAY ==
[2023-04-11 22:10] VITALS: BP 148/93; PULSE 79; RESP 24; TEMP 37.2; O2SAT 100; BMI 20.9
--- NOTE | 2023-04-11 22:29 | ECG_ITS ---
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 Measurements Intervals [employer] Rate: 80 P: 89 NC: 154 QRS: 80 QRSD: 93 T: 73 QT: 358 QTc: 415 Interpretive Statements SINUS RHYTHM WITH OCCASIONAL SUPRAVENTRICULAR PREMATURE COMPLEXES Compared to ECG 02/24/2023 17:30:08 Sinus arrhythmia no longer present Electronically Signed On 04-13-2023 7:58:55 CDT by Skip Izaguirre M.D. [email or web address].[employer]/store/OM/[id number]/[id number]
--- NOTE | 2023-04-11 22:29 | XRR_ITS ---
PROCEDURE INFORMATION: Exam: XR Chest Exam date and time: 04/11/2023 10:54 PM Age: 68 years old Clinical indication: Shortness of breath; Additional info: SOB TECHNIQUE: Imaging protocol: Radiologic exam of the chest. Views: 1 view. COMPARISON: CR XR chest 1V portable [id number] 02/24/2023 11:22 AM FINDINGS: Lungs: Stable moderate COPD . Pleural spaces: Unremarkable. No pleural effusion. No pneumothorax. Heart/Mediastinum: Unremarkable. No cardiomegaly. Bones/joints: Unremarkable. XR/XR chest 1V portable [id number] IMPRESSION: Stable moderate COPD .
[2023-04-11] MEDS: ipratropium-albuterol 3 mL Neb INHALATION (22:40)
[2023-04-11 22:42] LABS: Basophils # 0.1 10^3/uL (0.0-0.1); Basophils % 0.7 %; Eosinophils % 0.2 %; Hematocrit 35.9 % (42.0-52.0); Hemoglobin 10.9 g/dL (11.7-16.6); Lymphocytes # 1.2 10^3/uL (0.8-4.8); Mean Corpuscular HGB Conc 30.4 g/dL (30.0-36.0); Mean Corpuscular Volume 98.9 fl (80-94); Mean Platelet Volume 9.2 fL (7.4-10.4); Monocytes # 0.8 10^3/uL (0.2-0.9); Monocytes % 8.2 %; Neutrophils # 7.68 10^3/uL (1.8-7.7); Neutrophils % 77.2 %; Nucleated Red Blood Cells % 0 %; Platelet Count 307 10^3/cmm (130-400); Red Blood Count 3.63 10^6/uL (4.1-5.3); Red Cell Distribution Width 13.2 % (12.1-15.1)
[2023-04-11 22:43] VITALS: PULSE 78; RESP 22; O2SAT 99
[2023-04-11 22:53] LABS: ABG PCO2 52.4 mmHg (35-45); ABG PH Result 7.39 (7.35-7.45); Arterial Blood Gas Hematocrit 37.1 % (42-52); Base Excess ABG 5.8 mmol/L (-2.0-2.0); Blood Gas Allen Test Pos; Blood Gas Sample Site Radial, right; Blood Gas Sample Type Arterial; Carboxyhemoglobin 1.6 %THgb (0.4-20.1); HGB O2 Sat 96.2 % (95-100); Methemoglobin 0.5 % (0.4-1.5); Oxygen Device NC; PO2 ABG 93.9 mmHg (80.0-100.0); Total Hemoglobin 12.1 g/dL (14-18)
[2023-04-11 22:55] LABS: Lactic Sepsis W/Reflex 1.6 mmol/L (0.5-2.2)
[2023-04-11 22:56] LABS: Troponin(5th) Baseline 10 ng/L (0-15)
[2023-04-11 23:01] VITALS: BP 149/102; PULSE 87; RESP 20; O2SAT 98
[2023-04-11 23:06] LABS: Alanine Aminotransferase 9 U/L (0-41); Albumin Level 2.9 g/dL (3.5-5.2); Alkaline Phosphatase 81 U/L (40-130); Aspartate Amino Transferase 12 U/L (0-40); Blood Urea Nitrogen 12 mg/dL (8-23); Calcium 7.4 mg/dL (8.5-10.5); Carbon Dioxide 27 mmol/L (22-29); Chloride 107 mmol/L (98-107); Glomerular Filtration Rate 96.4 mL/min (90-130); Glucose 102 mg/dL (65-115); Magnesium 1.8 mg/dL (1.7-2.3); NT Pro B Type Natriuretic Pept 36 pg/mL (0-125); Osmolality Calculated 294 mOsm/kg (285-295); Sodium 142 mmol/L (136-145); Total Bilirubin 0.2 mg/dL (0.15-1.2); Total Protein 4.9 g/dL (6.6-8.7)
[2023-04-11 23:19] LABS: Anion Gap 11.6 (5-19); Potassium 3.6 mmol/L (3.5-5.1)
[2023-04-11 23:24] LABS: INR 0.98 (0.8-1.2)
--- NOTE | 2023-04-12 15:34 | ED_ITS ---
HPI - SOB/Dyspnea General: Chief Complaint: Shortness of Breath/Dyspnea Stated Complaint: sob Time Seen by Provider: 04/11/23 22:20 Source: patient History of Present Illness: HPI Narrative: 68 year old male with a history of COPD. This is long standing. He presents with increased shortness of breath as well as cough, although he notes that the cough is decreased over the past couple of days. Symptoms have been ongoing for sever al days now. No fever. He received solumedrol as well as nebulizer treatments in the ambulance with improvement. He does use oxygen at home. MD elicited complaint: shortness of breath and cough Pertinent past history: COPD Onset (ago): day(s) Exacerbating factors: lying flat and exertion Relieving factors: oxygen Known history of: COPD Associated symptoms: Reports chest congestion, cough and nausea; Deny chest pain, fever(s) or vomiting Treatment prior to arrival: oxygen, bronchodilator and other Related Data: Home oxygen amount: 2 liters Review of Systems Const: Denies: fever(s) or chills ENMT: Denies: throat pain Card: Denies: chest pain Resp: Reports: dyspnea, productive cough and chest congestion GI: Reports: nausea; Denies: vomiting PFSH ED PFSH: Medical History COPD (chronic obstructive pulmonary disease) Social History Smoking and tobacco status: current every day smoker Physical Exam Const: COMMON NORMALS: no acute distress GENERAL APPEARANCE: cooperative; not ill appearing and not frail appearing HENMT: COMMON NORMALS: normocephalic, atraumatic and Normal external nose present HEAD & SCALP: normocephalic and atraumatic FACE & SINUS: normal facial exam and face symmetric NOSE: Normal external nose present Eye: COMMON NORMALS: Equal, round and reactive pupils present and EOMs intact bilaterally PUPIL: Yes Equal, round and reactive pupils present Neck/C-Spine: GENERAL: Yes trachea midline Chest: CHEST: Yes Symmetrical chest wall rise Resp: COMMON NORMALS: normal respiratory effort, No retractions and No use of accessory muscles AUSCULTATION: rhonchi and wheezes Cardio: COMMON NORMALS: regular rate and regular rhythm RATE: regular rate RHYTHM: regular rhythm GI: COMMON NORMALS: Normal to inspection, nondistended, normoactive bowel sounds present Extremity: COMMON NORMALS: no pedal edema Neuro: KRISHNA COMA SCALE: document GCS findings Krishna coma scale eye opening: Spontaneous Krishna coma scale verbal response: Orientated Stebbins coma scale motor response: Obey commands Krishna coma scale total score: 15 SENSORY EXAM: Yes extremities (intact) Psych: COMMON NORMALS: speech normal SPEECH: Yes normal speech Skin: COMMON NORMALS: no rashes or lesions noted GENERAL SKIN EXAM: no rashes or lesions noted Course Vital Signs: Vital signs: Vital Signs Temperature 98.9 F 04/11/23 22:10 Pulse Rate 87 04/11/23 23:01 Respiratory Rate 20 H 04/11/23 23:01 Blood Pressure 149/102 04/11/23 23:01 Pulse Oximetry 98 04/11/23 23:01 Oxygen Delivery Me thod Nasal Cannula 04/11/23 23:01 Oxygen Flow Rate 2 04/11/23 23:01 MDM - SOB/Dyspnea Medical Decision Making Respiratory status is significantly improved following nebulizer treatments, and solumedrol. He is at his baseline home oxygen setting and breathing well. His hemoglobin is 11. BMP is normal. Chest X-ray shows stable COPD findings chronically. His pH on blood gas testing is 7.4 with a PCO 2 of 52, and PO2 of 94 on his home 2L. His BNP is not elevated. His troponin is normal. EKG shows no acute St. changes. He will be discharged in a Prednisone taper, and to continue nebulizer treatments common to return for worsening symptoms despite treatment. Outpatient follow up. Lab Data 04/11/23 22:28 04/11/23 22:28 Labs/Radiology: Radiology Impressions Chest X-Ray 04/11/23 22:29 IMPRESSION: Stable moderate COPD . Laboratory Results WBC 10.0 10^3/uL (4.0-10.0) 04/11/23 22: RBC 3.63 10^6/uL (4.1-5.3) L 04/11/23 22:28 Hgb 10.9 g/dL (11.7-16.6) L 04/11/23 22:28 Hct 35.9 % (42.0-52.0) L 04/11/23 22: MCV 98.9 fl (80-94) H 04/11/23 22: MCH 30.0 pg (28.0-34.0) 04/11/23: MCHC 30.4 g/dL (30.0-36.0) 04/11/23: RDW 13.2 % (12.1-15.1) 04/11/23: Plt Count 307 10^3/cmm (130-400) 04/11/23 22: MPV 9.2 fL (7.4-10.4) 04/11/23 22: Neut % (Auto) 77.2 % 04/11/23 22: Lymph % (Auto) 12.0 % 04/11/23: [place] % (Auto) 8.2 % 04/11/23: Eos % (Auto) 0.2 % 04/11/23: Baso % (Auto) 0.7 % 04/11/23: Neut # (Auto) 7.68 10^3/uL (1.8-7.7) 04/11/23: Lymph # (Auto) 1.2 10^3/uL (0.8-4.8) 04/11/23: [place] # (Auto) 0.8 10^3/uL (0.2-0.9) 04/11/23: Eos # (Auto) 0.0 10^3/uL (0.0-0.8) 04/11/23: Baso # (Auto) 0.1 10^3/uL (0.0-0.1) 04/11/23: Nucleated RBC % (auto) 0 % 04/11/23: Nucleated RBCs # 0.0 /100WBC 04/11/23: PT 13.30 SECONDS (12.1-14.9) 04/11/23: INR 0.98 (0.8-1.2) 04/11/23: Specimen Type Arterial 04/11/23 22:42 Sample Site Radial, right 04/11/23 22:42 ABG pH 7.39 (7.35-7.45) 04/11/23 22:42 ABG pCO2 52.4 mmHg (35-45) H 04/11/23 22:42 ABG pO2 93.9 mmHg (80.0-100.0) 04/11/23 22:42 ABG HCO3 32.0 mmol/L (22-26) H 04/11/23 22:42 ABG Base Excess 5.8 mmol/L (-2.0-2.0) H 04/11/23 22:42 Ivan Test Pos 04/11/23 22:42 Hematocrit 37.1 % (42-52) L 04/11/23 22:42 Hgb O2 Saturation 96.2 % (95-100) 04/11/23 22:42 Carboxyhemoglobin 1.6 %THgb (0.4-20.1) 04/11/23 22:42 Methemoglobin 0.5 % (0.4-1.5) 04/11/23 22:42 Total Hemoglobin 12.1 g/dL (14-18) L 04/11/23 22:42 O2 Delivery Device Nc 04/11/23 22:42 O2 Liters/Min 2.0 % 04/11/23 22:42 Dry Kiln Operator ID [email or web address] 04/11/23 22:42 Sodium 142 mmol/L (136-145) 04/11/23 22:28 Potassium 3.6 mmol/L (3.5-5.1) 04/11/23 22:28 Chloride 107 mmol/L (98-107) 04/11/23 22:28 Carbon Dioxide 27 mmol/L (22-29) 04/11/23 22:28 Anion Gap 11.6 (5-19) 04/11/23 22:28 BUN 12 mg/dL (8-23) 04/11/23 22:28 Creatinine 0.8 mg/dL (0.7-1.2) 04/11/23 22:28 GFR Calculation 96.4 mL/min (90-130) 04/11/23 22:28 Glucose 102 mg/dL (65-115) 04/11/23 22:28 Calculated Osmolality 294 mOsm/kg (285-295) 04/11/23 22:28 Lactic Acid 1.6 mmol/L (0.5-2.2) 04/11/23 22:28 Calcium 7.4 mg/dL (8.5-10.5) L 04/11/23 22:28 Magnesium 1.8 mg/dL (1.7-2.3) 04/11/23 22:28 Total Bilirubin 0.2 mg/dL (0.15-1.2) 04/11/23 22:28 AST 12 U/L (0-40) 04/11/23 22:28 ALT 9 U/L (0-41) 04/11/23 22:28 Alkaline Phosphatase 81 U/L (40-130) 04/11/23 22:28 Troponin T Baseline 10 ng/L (0-15) 04/11/23 22:28 NT-Pro-B Natriuret Pep 36 pg/mL (0-125) 04/11/23 22:28 Total Protein 4.9 g/dL (6.6-8.7) L 04/11/23 22:28 Albumin 2.9 g/dL (3.5-5.2) L 04/11/23 22:28 Globulin 2.0 g/dL (1.3-4.6) 04/11/23 22:28 Discharge Plan Discharge Patient Disposition: Home Clinical Impression: Acute exacerbation of chronic obstructive airways disease Condition: Stable Prescriptions: New levofloxacin 500 mg tablet 500 mg PO DAILY 7 Days Qty: 7 0RF Continued prednisone 10 mg tablet See Taper PO DIRECTED Qty: 60 0RF Taper: predniSONE 60-10 60 mg Daily for 2 Days and 0 Hour 50 mg Daily for 2 Days and 0 Hour 40 mg Daily for 2 Days and 0 Hour 30 mg Daily for 2 Days and 0 Hour 20 mg Daily for 2 Days and 0 Hour 10 mg Daily for 2 Days and 0 Hour Rx Instructions: see taper instructions No Action Advair Diskus 500-50 mcg/dose blister with device 1 inh inhalation BID 30 Days Qty: 60 2RF Spiriva with HandiHaler 18 mcg Capsule, W/Inhalation Device 1 cap INHALATION DAILY 30 Days Qty: 30 2RF Discharge Orders: Discharge ED (Routine); Ordered 04/12/23 Ordered By: Mark Gu Patient Instructions: COPD (Chronic Obstructive Pulmonary Disease) (ED) Activity Restrictions/Additional Instructions: Use your nebulizer machine every 4 hours while awake for the next 48 hours, then as needed. Increase your prednisone dosage to the taper listed above. Antibiotics as directed. Return for worsening shortness of breath despite treatment, fever greater than 100, chest discomfort, other concerning symptoms Coding Level of Care Code ED Clinical Molecular Geneticist for 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
--- NOTE | 2023-04-30 15:07 | DCPLANNER ---
late entry - patient called due to no primary care physician - no answer at this time.
== END 2023-04-12 07:47 | disposition home or self-care (01) ==
PROVIDERS: Emergency Provider Emergency Medicine
DX: J44.1 Chronic obstructive pulmonary disease with (acute) exacerbation (principal); F17.210 Nicotine dependence, cigarettes, uncomplicated
CPT/HCPCS: 36415; 36600; 71045; 80053; 82805; 83605; 83735; 83880; 84484; 85025; 85610; 87040; 93005; 94640; 99285

== ENCOUNTER 2023-07-22 10:49 | Emergency (ER) | payer MEDICARE, SELFPAY ==
[2023-07-22] VITALS (17 sets, daily range): BP systolic 96–170; BP diastolic 81–116; PULSE 118–146; RESP 20–34; O2SAT 84–98
--- NOTE | 2023-07-22 10:53 | ECG_ITS ---
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 Measurements Intervals [place] Rate: 143 P: 79 [place]: 140 QRS: 74 QRSD: 85 T: 90 QT: 271 QTc: 419 Interpretive Statements SINUS TACHYCARDIA, POSSIBLE ATRIAL FLUTTER SEPTAL MYOCARDIAL INFARCTION , OF INDETERMINATE AGE [40+ ms Q WAVE IN V1/V2] Compared to ECG 04/11/2023 22:40:14 Myocardial infarct finding now present Sinus rhythm no longer present Electronically Signed On 07-22-2023 20:50:30 CDT by Scott Alonso M.D. [email or web address] [email or web address].PPLCONNECT/store/NU/[id number] beth
--- NOTE | 2023-07-22 10:54 | XRR_ITS ---
PROCEDURE INFORMATION: Exam: XR Chest Exam date and time: 07/22/2023 11:16 AM Age: 68 years old Clinical indication: Condition or disease; Lung condition and disease; Respiratory failure; Status not specified; Additional info: Resp failure TECHNIQUE: Imaging protocol: Radiologic exam of the chest. Views: 1 view. COMPARISON: CR (CHEST, ) 04/11/2023 10:54 PM FINDINGS: Lungs: Unchanged bilateral bullous emphysema with hyperexpansion of the lungs. No superimposed acute pulmonary abnormality. Pleural spaces: Unremarkable. No pleural effusion. No pneumothorax. Heart/Mediastinum: Unremarkable. No cardiomegaly. Bones/joints: Unchanged moderate thoracic scoliosis. XR/XR chest 1V portable [id number] IMPRESSION: Unchanged bilateral bullous emphysema. No superimposed acute disease.
--- NOTE | 2023-07-22 11:03 | ED_ITS ---
HPI - SOB/Dyspnea General: Chief Complaint: Shortness of Breath/Dyspnea Stated Complaint: Resp Distress Time Seen by Provider: 07/22/23 10:53 History of Present Illness: HPI Narrative: 68-year-old male arrives by EMS in respiratory failure. EMS reports he is living at a hospice house which is essentially an assisted living for patients on hospice. The workers were calling his hospice company to report his symptoms. According to EMS, the workers thought he was dying of his respiratory failure today. The patient started to get panicked and ultimately decided to revoke his DNR and is hospice. EMS was able to ascertain that he would want to be intubated. EMS reports that his hospice is for end-stage respiratory failure related to COPD. The patient does arrive with a pack of cigarettes and a disk recoater in his front pocket. I did do medical control on this patient to EMS. They called me stating he was agitated and in respiratory distress. They had given 1 g of magnesium, IV Solu- Medrol, 2 albuterol treatments and 1 DuoNeb treatment. SPO2 was 97% on 2 L. His end-tidal CO2 had dropped down as low as 18 at 1 point and was at 21 at the time of my phone call. I advised him to give the patient ketamine and initiate a CPAP. The report was broken but it sounded like the patient had hypercapnic respiratory failure. At the time of arrival, EMS reports that the ketamine and CPAP seems to have helped significantly. His end-tidal CO2 has come up and his work of breathing has improved. I examined him in took report on arrival. We then did a blood gas showing a pH of 7.36 and a PCO2 of 55 with a PO2 of 75. Suspect that this is dramatically improved from what they were describing in the prehospital setting. CPAP appears to be working so we switched him over to BiPAP. Review of Systems General: Reports: ROS unobtainable due to medical condition (Hypercapnic and also under the influence of ketamine) PFS ED PFSH: Medical History COPD (chronic obstructive pulmonary disease) Social History Smoking and tobacco status: current every day smoker Physical Exam Narrative: EXAM NARRATIVE: 68-year-old male who is under the influence of ketamine. He is looking around and moving all extremities but is not communicating normally. He appears to be dissociated. He is tachycardic. His radial pulse is 2+. He appears older than stated age and is deconditioned in appearance. He appears somewhat malnourished. He has barrel chested. He is tachypneic with prolonged expiratory phase. He does have JVD. He is moving a lot more air than I would have expected now that he is on BiPAP. I can hear breath sounds bilaterally on his anterior chest with auscultation. He is quite tachycardic but his rhythm feels regular. Const: COMMON NORMALS: no limitations and alert EXAM LIMITATIONS: no altered mental status HENMT: COMMON NORMALS: normocephalic, atraumatic and external ears normal HEAD & SCALP: normocephalic and atraumatic EXTERNAL EAR: Yes external ears normal MOUTH: no muffled voice Eye: COMMON NORMALS: EOMs intact bilaterally, conjunctivae normal and no scleral icterus CONJUNCTIVA: Yes conjunctivae normal Neck/C-Spine: GENERAL: Yes normal visual inspection and Yes trachea midline Cardio: COMMON NORMALS: regular rhythm RHYTHM: regular rhythm Extremity: COMMON NORMALS: normal to inspection Neuro: COMMON NORMALS: moves all extremities and no focal motor deficits SENSORIUM/ORIENTATION: Yes alert Skin: COMMON NORMALS: no rashes or lesions noted, turgor normal and no jaundice GENERAL SKIN EXAM: no rashes or lesions noted and turgor normal Course Vital Signs: Vital signs: Vital Signs Pulse Rate 127 H 07/22/23 13:35 Respiratory Rate 26 H 07/22/23 13:35 Blood Pressure 107/92 07/22/23 13:20 Pulse Oximetry 93 07/22/23 13:35 Oxygen Delivery Me thod BiPAP 07/22/23 11:23 Fraction of Inspir ed Oxygen 35 07/22/23 11:23 MDM - SOB/Dyspnea Medical Decision Making 68-year-old male presents with hypoxic hypercapnic respiratory failure. In the prehospital setting, the patient was treated with magnesium, Solu-Medrol, beta agonist, and per medical direction given ketamine and CPAP was initiated. EMS reports his clinical condition has been improving since these interventions. Blood gas here is showing a acute on chronic respiratory acidosis which now appears mostly compensated. EKG obtained at 10:57 AM shows a sinus tachycardia, left atrial enlargement or pulmonary P waves noted, QTc within normal limits, QRS narrow, some nonspecific ST and T wave changes. Delayed R wave progression through the prec ordium. Patient has had a lot of beta agonists and is going to need more as we work through his respiratory acidosis. I Tammy go ahead and give him a dose of Cardizem and see if we can control his heart rate a little bit. If this does not work we may have to use a beta-1 selective beta-sherly. Update White blood cell count came back at 22.8. This is nonspecific and is probably a stress reaction. However given the severity of the patient's condition I will go ahead and obtain blood cultures and give a dose of doxycycline and Rocephin. Chest x-ray shows significantly hyperexpanded lungs. There are what appear to be changes of emphysema as well as some lung scarring. A few minor air bronchograms are noted. Patient is being maintained on BiPAP. He will need to be admitted to stepdown or ICU. I will consult with the hospitalist for admission. UPDATES: Patient took off his BiPAP. I went to speak with him. He is very difficult to understand. I cannot clearly understand his goals of care. Repeat ABG minimally changed off bipap now. Dr. Cabrales got involved and has seen the patient. She was able to communicate with the patient's hospice team. Evidently, the hospice team did respond this morning but there is such a acevedo/ panic that they did not have time to do any interventions. Dr Mejia has spoken to patient after speaking with team. Plan is to d/c back to hospice and assisted living. She's prescribed abx and prednisone. Lab Data 07/22/23 11:00 07/22/23 11:00 Labs/Radiology: Radiology Impressions Chest X-Ray 07/22/23 10:54 IMPRESSION: Unchanged bilateral bullous emphysema. No superimposed acute disease. Laboratory Results WBC 22.80 10^3/uL (3.29-11.43) H 07/22/23 11:00 RBC 4.86 10^6/uL (3.85-5.65) 07/22/23 11:00 Hgb 14.80 g/dL (11.27-16.99) 07/22/23 11:00 Hct 46.3 % (37-53) 07/22/23 11:00 MCV 95.3 fl (82-101) 07/22/23 11:00 MCH 30.5 pg (27-33) 07/22/23 11:00 MCHC 32.0 g/dL (30-55) 07/22/23 11:00 RDW 14.4 % (12.1-15.1) 07/22/23 11:00 Plt Count 225 10^3/cmm (157-399) 07/22/23 11:00 MPV 8.8 fL (7.4-10.4) 07/22/23 11:00 Neut % (Auto) 83.8 % 07/22/23 11:00 Lymph % (Auto) 7.9 % 07/22/23 11:00 [place] % (Auto) 5.8 % 07/22/23 11:00 Eos % (Auto) 0.7 % 07/22/23 11:00 Baso % (Auto) 0.4 % 07/22/23 11:00 Neut # (Auto) 19.09 10^3/uL (1.8-7.7) H 07/22/23 11:00 Lymph # (Auto) 1.8 10^3/uL (0.8-4.8) 07/22/23 11:00 [place] # (Auto) 1.3 10^3/uL (0.2-0.9) H 07/22/23 11:00 Eos # (Auto) 0.2 10^3/uL (0.0-0.8) 07/22/23 11:00 Baso # (Auto) 0.1 10^3/uL (0.0-0.1) 07/22/23 11:00 Nucleated RBC % (auto) 0 % 07/22/23 11:00 Nucleated RBCs # 0.0 /100WBC 07/22/23 11:00 Specimen Type Arterial 07/22/23 12:47 Sample Site Radial, right 07/22/23 12:47 ABG pH 7.38 (7.35-7.45) 07/22/23 12:47 ABG pCO2 50.4 mmHg (35-45) H 07/22/23 12:47 ABG pO2 63.0 mmHg (80.0-100.0) L 07/22/23 12:47 ABG HCO3 29.6 mmol/L (22-26) H 07/22/23 12:47 ABG Base Excess 3.3 mmol/L (-2.0-2.0) H 07/22/23 12:47 Ivan Test Pos 07/22/23 12:47 Hematocrit 46.1 % (42-52) 07/22/23 12:47 Hgb O2 Saturation 94.1 % (95-100) L 07/22/23 10:52 Carboxyhemoglobin 1.6 %THgb (0.4-20.1) 07/22/23 10:52 Methemoglobin 0.4 % (0.4-1.5) 07/22/23 10:52 Total Hemoglobin 15.2 g/dL (14-18) 07/22/23 10:52 O2 Delivery Device Nc 07/22/23 12:47 O2 Liters/Min 2.0 % 07/22/23 12:47 FiO2 28.0 % 07/22/23 12:47 [employer] Studies Professor ID Amh 07/22/23 12:47 Sodium 141 mmol/L (136-145) 07/22/23 11:00 Potassium 4.5 mmol/L (3.5-5.1) 07/22/23 11:00 Chloride 100 mmol/L (98-107) 07/22/23 11:00 Carbon Dioxide 30 mmol/L (22-29) H 07/22/23 11:00 Anion Gap 15.5 (5-19) 07/22/23 11:00 BUN 17 mg/dL (8-23) 07/22/23 11:00 Creatinine 0.9 mg/dL (0.7-1.2) 07/22/23 11:00 GFR Calculation 84.2 mL/min (90-130) L 07/22/23 11:00 Glucose 120 mg/dL (65-115) H 07/22/23 11:00 Calculated Osmolality 295 mOsm/kg (285-295) 07/22/23 11:00 Lactic Acid 1.5 mmol/L (0.5-2.2) 07/22/23 11:00 Calcium 9.0 mg/dL (8.5-10.5) 07/22/23 11:00 Magnesium 2.7 mg/dL (1.7-2.3) H 07/22/23 11:00 Total Bilirubin 0.8 mg/dL (0.15-1.2) 07/22/23 11:00 AST 16 U/L (0-40) 07/22/23 11:00 ALT 17 U/L (0-41) 07/22/23 11:00 Alkaline Phosphatase 70 U/L (40-130) 07/22/23 11:00 Total Protein 5.9 g/dL (6.6-8.7) L 07/22/23 11:00 Albumin 3.8 g/dL (3.5-5.2) 07/22/23 11:00 Globulin 2.1 g/dL (1.3-4.6) 07/22/23 11:00 Urine Color Yellow (Yellow) 07/22/23 11:08 Urine Appearance Clear (CLEAR) 07/22/23 11:08 Urine pH 6 (5-7) 07/22/23 11:08 Ur Specific [place] 1.020 (1.005-1.030) 07/22/23 11:08 Urine Protein 3+ (Negative) H 07/22/23 11:08 Urine Glucose (UA) Norm (Normal) 07/22/23 11:08 Urine Ketones Negative (Negative) 07/22/23 11:08 Urine Blood 2+ (Negative) H 07/22/23 11:08 Urine Nitrate Negative (Negative) 07/22/23 11:08 Urine Bilirubin Neg (Negative) 07/22/23 11:08 Urine Urobilinogen Norm mg/dL (Negative) 07/22/23 11:08 Ur Leukocyte Esterase Negative (Negative) 07/22/23 11:08 Urine RBC 5-10 /hpf (0-2) H 07/22/23 11:08 Urine WBC 5-10 /hpf (0-5) H 07/22/23 11:08 Ur Squamous Epith Cells 0-4 /hpf (0-5) H 07/22/23 11:08 Amorphous Sediment Not Reportable 07/22/23 11:08 Urine Bacteria Trace /hpf (NONE) 07/22/23 11:08 Hyaline Casts 5-10 /lpf H 07/22/23 11:08 Fine Granular Casts 5-10 /lpf H 07/22/23 11:08 Urine Mucus None /hpf 07/22/23 11:08 SARS-CoV-2 Ag (Rapid) negative (Negative) 07/22/23 11:45 All radiology interpretation(s) finalized by discharge Critical Care Time Critical Care Time: Attestation: 60 minutes of critical care time was performed. This includes prehospital consultation with EMS and initiation of sedatives as well as CPAP. Immediate intervention upon arrival including initiation of BiPAP, beta agonist, calcium channel sherly, titration of oxygen, assessment of end-tidal CO2, titration of BiPAP, chart review, discussion with workers from his assisted living, reassessment, etc. Discharge Plan Discharge Patient Disposition: Home Clinical Impression: Acute on chronic respiratory failure with hypoxia and hypercapnia, Cigarette smoker, Transitioned from hospice care to emergency department Condition: Stable Prescriptions: New levofloxacin 500 mg tablet 500 mg PO DAILY 5 Days Qty: 5 0RF Continued SSD 1 % Cream 1 applic TOPICAL BID Rx Instructions: apply a 1.5 mm thickness prednisone 10 mg tablet 10 mg PO BID ipratropium-albuterol 0.5 mg-3 mg(2.5 mg base)/3 mL solution for nebulization 3 ml INHALATION QID PRN (Reason: Shortness Of Breath Or Wheezing) albuterol sulfate 2.5 mg /3 mL (0.083 %) solution for nebulization 2.5 mg continuous nebulization QID PRN (Reason: Shortness Of Breath Or Wheezing) pantoprazole 40 mg tablet,delayed release (DR/EC) 40 mg PO DAILY albuterol sulfate 90 mcg/actuation HFA aerosol inhaler 2 puff INHALATION Q4H PRN (Reason: Shortness Of Breath Or Wheezing) Mucinex 600 mg tablet extended release 12hr 600 mg PO BID PRN (Reason: Congestion) Discharge Orders: Discharge ED (Routine); Ordered 07/22/23 Ordered By: Carmelo Cabrales Discharge Diet: Usual diet Discharge Activity: Resume usual activity Activity Restrictions/Additional Instructions: Dr. Cabrales the hospitalist on-call spoke with both the hospice [facility] nurse director, Susan, at [phone] and Reid who owns the senior living where you live. you are continuing care with hospice [facility]. The goal of this care is for comfort. Relief of your shortness of breath and heavy breathing can be obtained with comfort medications provided by your hospice. A comfort kit will be provided to the senior living such that Reid could administer. Reid has been advised that she has to allow hospice to check this medicine and to count how much has been used on a regular basis. She has been agreeable to this. Coding Level of Care Code ED Hydraulic Press In Operator for 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
[2023-07-22 11:04] LABS: ABG PH Result 7.36 (7.35-7.45); Arterial Blood Gas Hematocrit 46.7 % (42-52); Blood Gas Operator Identificat AMH; Blood Gas Sample Site Radial, left; Blood Gas Sample Type Arterial; Carboxyhemoglobin 1.6 %THgb (0.4-20.1); HGB O2 Sat 94.1 % (95-100); Methemoglobin 0.4 % (0.4-1.5); Oxygen Device BIPAP; PO2 ABG 75.3 mmHg (80.0-100.0); Total Hemoglobin 15.2 g/dL (14-18)
[2023-07-22] MEDS: dilTIAZem 5 mg/mL SDV 5 mL 10 MG IVP (11:05)
[2023-07-22 11:09] LABS: Basophils # 0.1 10^3/uL (0.0-0.1); Basophils % 0.4 %; Eosinophils # 0.2 10^3/uL (0.0-0.8); Eosinophils % 0.7 %; Hematocrit 46.3 % (37-53); Lymphocytes # 1.8 10^3/uL (0.8-4.8); Lymphocytes % 7.9 %; Mean Corpuscular Hemoglobin 30.5 pg (27-33); Mean Corpuscular Volume 95.3 fl (82-101); Mean Platelet Volume 8.8 fL (7.4-10.4); Monocytes # 1.3 10^3/uL (0.2-0.9); Monocytes % 5.8 %; Neutrophils # 19.09 10^3/uL (1.8-7.7); Neutrophils % 83.8 %; Nucleated Red Blood Cells % 0 %; Platelet Count 225 10^3/cmm (157-399); Red Blood Count 4.86 10^6/uL (3.85-5.65); Red Cell Distribution Width 14.4 % (12.1-15.1)
[2023-07-22] MEDS: albuterol 2.5 mg/3 mL Neb 5 MG INHALATION (11:09)
[2023-07-22] MEDS: midazolam 1 mg/mL INJ 2 mL 3 MG IVP (11:11)
[2023-07-22 11:36] LABS: Alanine Aminotransferase 17 U/L (0-41); Albumin Level 3.8 g/dL (3.5-5.2); Alkaline Phosphatase 70 U/L (40-130); Anion Gap 15.5 (5-19); Aspartate Amino Transferase 16 U/L (0-40); Blood Urea Nitrogen 17 mg/dL (8-23); Carbon Dioxide 30 mmol/L (22-29); Chloride 100 mmol/L (98-107); Globulin 2.1 g/dL (1.3-4.6); Glomerular Filtration Rate 84.2 mL/min (90-130); Glucose 120 mg/dL (65-115); Magnesium 2.7 mg/dL (1.7-2.3); Osmolality Calculated 295 mOsm/kg (285-295); Potassium 4.5 mmol/L (3.5-5.1); Sodium 141 mmol/L (136-145); Total Bilirubin 0.8 mg/dL (0.15-1.2); Total Protein 5.9 g/dL (6.6-8.7)
[2023-07-22 11:38] LABS: Urine Appearance Clear (CLEAR); Urine Color Yellow (Yellow)
[2023-07-22 11:39] LABS: Add Urine Microscopic? YES; Bilirubin Urine Neg (Negative); Blood Urine 2+ (Negative); Glucose Urine UA Norm (Normal); Ketones Urine Negative (Negative); Leukocyte Esterase Urine Negative (Negative); Nitrate Urine Negative (Negative); Protein Urine 3+ (Negative); Urobilinogen Urine Norm (Negative); pH Urine 6 (5-7)
[2023-07-22 11:50] LABS: Bacteria Urine TRACE /hpf; Squamous Epithelial Cell Urine 0-4 /hpf (0-5)
[2023-07-22 11:51] LABS: Add Urine Culture? No
--- NOTE | 2023-07-22 11:51 | PC.PHAR ---
pt has [facility]- pt lives in a unlicensed [facility] in [place] - pts contact is Reid [phone]- called [facility] and talked to Susan to verify pts medications- pt has ssd cream for his nose do to smoking while wearing oxygen- pt has rx for 4 liters oxygen at home and refuses to run it at any less than 7
[2023-07-22 11:58] LABS: Lactic Sepsis W/Reflex 1.5 mmol/L (0.5-2.2)
[2023-07-22] MEDS: cefTRIAXone 1,000 MG in sodium chloride 0.9% (plus) 50 ML 100 MG IV (11:58)
[2023-07-22] MEDS: doxycycline 100 MG in sodium chloride 0.9% (plus) 100 ML IV (12:02)
[2023-07-22 12:20] LABS: SARS Covid-2 Antigen negative (Negative)
[2023-07-22] MEDS: morphine 4 mg/mL SDV 1 mL 2 MG IVP (12:28)
[2023-07-22 12:57] LABS: ABG PCO2 50.4 mmHg (35-45); ABG PH Result 7.38 (7.35-7.45); Arterial Blood Gas Hematocrit 46.1 % (42-52); Base Excess ABG 3.3 mmol/L (-2.0-2.0); Blood Gas Allen Test Pos; Blood Gas Operator Identificat AMH; Blood Gas Sample Site Radial, right; Blood Gas Sample Type Arterial; HCO3 ABG 29.6 mmol/L (22-26); Oxygen Device NC
--- NOTE | 2023-07-22 13:57 | P.CONIM_ITS ---
Providers/Reason For Consult Consulting Physician/Specialty*: Internal medicine Reason for Consult*: Determination of disposition Requesting Physician: Dr. Lugo Attending Physician: None Primary Care Provider: Dr. Jeffers with hospice [facility] History of Present Illness History of Present Illness Axel Landry is a 68 year old male with end-stage COPD on home oxygen and on hospice with [facility] presents with increased shortness of breath and anxiety. Reid the detention hardening machine operator and research staff member called hospice and can sorter was on the way however she decided to call EMS for a well check for assistance. Reid states she did not have a comfort pack to utilize in patient's distress. Patient reports feeling better currently he states that he had heavy breathing without relief and thus was agreeable to transfer to the emergency room. Upon discussion currently patient wishes to continue with hospice and return home. He wants to know his life expectancy and I told him I still felt it was within a few months. While he was not happy with this answer he was agreeable to return home. Review of Systems Const: Denies: fever(s) or chills Eyes: Denies: change in vision ENMT: Denies: throat pain or nasal congestion Card: Denies: chest pain or palpitations Resp: Reports: dyspnea (As above) GI: Denies: abdominal pain, nausea, vomiting or change in stool character : Denies: difficulty urinating or dysuria Musc: Denies: back pain or extremity pain Skin/Breast: Denies: rash or lesions Neuro: Denies: headache(s) or dizziness Psych: Denies: anxiety or depression Adrian/Lymph: Denies: easy bruising or easy bleeding Medications/Allergies Home Medications Medication Instructions Recorded Confirmed Last Taken Type albuterol sulfate 2.5 mg/3 mL 2.5 mg continuous nebulization QID 07/22/23 07/22/23 Unknown History (0.083 %) solution for nebulization PRN Shortness Of Breath Or Wheezing albuterol sulfate 90 mcg/actuation 2 puff inhalation Q4H PRN 07/22/23 07/22/23 Unknown History aerosol inhaler Shortness Of Breath Or Wheezing guaifenesin 600 mg tablet, 600 mg PO BID PRN Congestion 07/22/23 07/22/23 Unknown History extended release 12 hr (Mucinex) ipratropium 0.5 mg-albuterol 3 mg 3 ml inhalation QID PRN Shortness 07/22/23 07/22/23 Unknown History (2.5 mg base)/3 mL nebulization Of Breath Or Wheezing soln pantoprazole 40 mg tablet,delayed 40 mg PO DAILY 07/22/23 07/22/23 Unknown History release prednisone 10 mg tablet 10 mg PO BID 07/22/23 07/22/23 Unknown History silver sulfadiazine 1 % topical 1 applic topical BID 07/22/23 07/22/23 Unknown History cream (SSD) Allergies Allergy/AdvReac Type Severity Reaction Status Date / Time No Known Allergies Allergy Verified 07/22/23 11:35 PFSH Acute PFSH: Medical History COPD (chronic obstructive pulmonary disease) Social History Smoking and tobacco status: current every day smoker Vitals/I&O/Wt Last Vital Signs Pulse 127 H 07/22/23 13:35 Resp 26 H 07/22/23 13:35 BP 107/92 07/22/23 13:20 Pulse Ox 93 07/22/23 13:35 O2 Del Method BiPAP 07/22/23 11:23 FiO2 35 07/22/23 11:23 07/21/23 07/22/23 07/22/23 22:59 06:59 14:59 Intake Total 50 / 50 Balance 50 / 50 Physical Exam Narrative: Elderly frail-appearing male with a chronically ashen complexion. He smells of tobacco. He is in no acute distress at time of examination HEENT: Head is normocephalic atraumatic pupils equal round and reactive to light and accommodation extraocular muscles are intact his eyes are bloodshot mucous membranes are erythematous neck is supple no JVD or carotid bruits Lymphatic no lymphadenopathy noted in the cervical supraclavicular area Heart: I am unable to auscultate heart sounds due to the barrel chest. Monitor shows sinus tachycardia at a rate of 122 Lungs: Severely diminished lung sounds with mild expiratory wheeze very limited aeration prolonged expiration Abdomen: Soft nontender nondistended positive bowel sounds no hepatosplenomegaly Extremities no lower extremity edema. Legs are thin cachectic appearing Data 07/22/23 11:00 07/22/23 11:00 Micro: Microbiology 07/22/23 11:00 Blood Culture - Preliminary Blood SPECIMEN COLLECTED 07/22/23 11:05 Blood Culture - Preliminary Blood SPECIMEN COLLECTED A&P Assessment and plan (1) Acute on chronic respiratory failure with hypoxia and hypercapnia: (2) Cigarette smoker: (3) COPD (chronic obstructive pulmonary disease): Plan Patient is on hospice for end-stage COPD chronic respiratory failure. Unfortunately EMS was called and transferred the patient here. Hospice [facility] was unable to arrive prior to EMS due to the length of drive. Patient's symptoms resolved on transportation with EMS after receiving nebulizer treatments a dose of Solu-Medrol and magnesium. He has returned to his baseline medical and mental status. I have called Reid twice and Susan and Angela at [facility] a total of 3 times. It seems the problem was that the patient did not have a comfort kit at the detention in order for Reid to administer Roxanol and Ativan when patient had his respiratory distress. I was told by Susan the civil defense director that they had to destroy the comfort kit because Reid would not allow counting to occur. I informed Reid that that was the case and told her she would have to allow counting in order to prevent this from happening again. There was concern that patient may be did not meet hospice criteria however patient is end-stage COPD while it is hard to determine life expectancy in a type of condition like this clearly patient has had a significant respiratory event today. I expect more events to occur in the future and become more frequent. The patient will be discharged home on 5 days of Levaquin. He is to continue the prednisone as previous. I would also recommend scheduling the nebulizers to prevent an acute respiratory event in the future. Consult Attestations Medical Necessity Statement: Patient will discharge home with continued hospice services with [facility]. Coding Level of Care Code Acute Code for g Fwd Diagnoses Acute on chronic respiratory failure with hypoxia and hypercapnia J96.21; J96.22 Cigarette smoker F17.210 COPD (chronic obstructive pulmonary disease) J44.9
== END 2023-07-22 16:31 | disposition home or self-care (01) ==
PROVIDERS: Emergency Provider Emergency Medicine
DX: J96.22 Acute and chronic respiratory failure with hypercapnia (principal); J96.21 Acute and chronic respiratory failure with hypoxia; F17.210 Nicotine dependence, cigarettes, uncomplicated; Z20.822 Contact with and (suspected) exposure to COVID-19; J44.9 Chronic obstructive pulmonary disease, unspecified
CPT/HCPCS: 36600; 71045; 80053; 81001; 82803; 82805; 83605; 83735; 85025; 87040; 87426; 93005; 94640; 94660; 96365; 96367; 96375; 99285; J0696; J2250; J2270; J3490; J7613

== ENCOUNTER 2023-08-23 11:30 | Emergency (ER) | payer OTHER, SELFPAY ==
[2023-08-23 11:33] VITALS: BMI 21.7
[2023-08-23 11:37] VITALS: BP 185/112; PULSE 72; RESP 16; TEMP 37.1; O2SAT 98
--- NOTE | 2023-08-23 12:23 | ED_ITS ---
HPI - Male Genitourinary General: Chief complaint: Urogenital-Male Stated complaint: URINARY RETENTION Time Seen by Provider: 08/23/23 11:49 Source: patient Mode of arrival: EMS Limitations: no limitations History of Present Illness: This patient presents to our emergency department from his domicile. He states that over the last couple days he has had painful urination particularly today. He states he is able to urinate without any difficulty but it hurts to urinate. He denies penile discharge. He denies any fevers or chills. He denies any other constitutional complaints. He states he has had dysuria symptoms intermittently for the past 6 months or so. He states he has been faithful to all his usual medications. He did wear his home oxygen because of history of COPD but denies any shortness of breath or change in his usual breathing pattern. Denies history of kidney stones, penile discharge, STDs, frequent urinary tract infections or prostate problems in the past. MD Complaint: dysuria Associated symptoms: Reports dysuria; Deny hematuria, nausea or vomiting Review of Systems Const: Denies: fever(s) or chills ENMT: Denies: odynophagia Card: Denies: chest pain or palpitations Resp: Denies: dyspnea, productive cough or non-productive cough GI: Denies: abdominal pain, nausea, vomiting or diarrhea : Reports: dysuria; Denies: flank pain, urinary urgency, hematuria, penile discharge or testicular pain Musc: Denies: back pain, extremity pain or extremity swelling Skin/Breast: Denies: rash or pruritus Neuro: Denies: headache(s), numbness in extremities or weakness in extremities Endo: Denies: polyuria or polydipsia PFSH ED PFSH: Medical History COPD (chronic obstructive pulmonary disease) Social History Smoking and tobacco/nicotine status: current every day tobacco/nicotine user Physical Exam Narrative: EXAM NARRATIVE: Patient is comfortable appears to be in no acute distress converses in complete sentences without dyspnea. Const: COMMON NORMALS: no acute distress, average body habitus and patient oriented x3 GENERAL APPEARANCE: cooperative and comfortable HENMT: COMMON NORMALS: normocephalic, Normal nasal mucous membranes and turbinates present and moist oral mucous membranes HEAD & SCALP: normocephalic NOSE: Normal nasal mucous membranes and turbinates present Eye: COMMON NORMALS: Equal, round and reactive pupils present and EOMs intact bilaterally PUPIL: Yes Equal, round and reactive pupils present Neck/C-Spine: COMMON NORMALS: full ROM, no lymphadenopathy and no JVD Chest: COMMONS NORMALS: normal inspection of the chest Resp: COMMON NORMALS: normal respiratory effort and No use of accessory muscles EFFORT & INSPECTION: Yes able to speak in complete sentences Cardio: COMMON NORMALS: no JVD, regular rhythm and Peripheral pulses 2+ throughout RHYTHM: regular rhythm PERIPHERAL PULSES: Peripheral pulses 2+ throughout GI: COMMON NORMALS: Normal to inspection, nondistended, normoactive bowel sounds present, Soft to palpation and non-tender PALPATION: Yes Soft to palpation and Yes Hernia present (He has a right inguinal hernia that easily reducible and nontender.) : COMMON NORMALS: Yes no CVA tenderness BLADDER/KIDNEY EXAM: Yes no CVA tenderness PENIS: normal penis and circumcised SCROTUM: Yes testes descended bilaterally, No Scrotal tenderness present, No scrotal swelling and No scrotal mass Back/Pelvis: COMMON NORMALS: no CVA tenderness, no thoracic nor lumbar tenderness and straight leg raise negative bilaterally Extremity: COMMON NORMALS: normal to inspection and full ROM Neuro: COMMON NORMALS: patient oriented x3, moves all extremities and no focal motor deficits CRANIAL NERVES: Yes CN normal except as noted Psych: COMMON NORMALS: mental status grossly normal Skin: COMMON NORMALS: no rashes or lesions noted and no wounds GENERAL SKIN EXAM: no rashes or lesions noted Course Reevaluation(s): Reevaluation #1: Bedside ultrasound was used to visualize pelvic area and urinary bladder. Bladder was noted to be present with estimated approximate 150 to 200 mL of urine. There was no evidence of obvious anterior fascicular masses debris etc. Reevaluation #2: Patient remains clinically stable. No new or focal findings on repeat evaluation. Urinalysis is not strongly suggestive of infection etc. but we will give him a 5-day course of Bactrim as well as have him follow-up with his primary care doctor in 2 weeks for repeat urinalysis. No evidence at this time of other ongoing conditions that could be contributing to his symptoms. He does have a right inguinal hernia as noted which we will make a routine referral for reevaluation and possible consideration for surgical repair however I do not feel that this is likely to be a factor in his current presentation. He is stable to be discharged at this time. Time: 13:47 Vital Signs: Vital signs: Vital Signs Temperature 98.8 F 08/23/23 11:37 Pulse Rate 72 08/23/23 11:37 Respiratory Rate 16 08/23/23 11:37 Blood Pressure 185/112 08/23/23 11:37 Pulse Oximetry 98 08/23/23 11:37 Oxygen Delivery Me thod Nasal Cannula 08/23/23 11:37 Oxygen Flow Rate 2 08/23/23 11:37 MDM - Male Medical Decision Making 68-year-old gentleman who presented with dysuria symptoms of the intermittent nature over the past couple of days have become more pronounced per her's history. However he has had a history of it for some time according to his history as well. His clinical examination was reassuring albeit he does have an easily reducible right inguinal hernia. He did not have any evidence of urinary retention by bedside ultrasound. His urinalysis did show small amount of blood trace bacteria as well as presence of small amount of white blood cells. Certainly does not suggest a serious infection given his current clinical picture, vital signs etc. We will give him a new. Trial of Bactrim DS for the next week and have a repeat urinalysis done by primary care. We will also make a referral for surgical evaluation for possible repair of his right inguinal hernia. This was all reviewed with the patient who voiced understanding. Stable at this time for discharge. Lab Data I reviewed the patient's lab results. Laboratory Results Urine Color Straw (Yellow) 08/23/23 12:55 Urine Appearance Clear (CLEAR) 08/23/23 12:55 Urine pH 7 (5-7) 08/23/23 12:55 Ur Specific [place] 1.005 (1.005-1.030) 08/23/23 12:55 Urine Protein Neg (Negative) 08/23/23 12:55 Urine Glucose (UA) Norm (Normal) 08/23/23 12:55 Urine Ketones Negative (Negative) 08/23/23 12:55 Urine Blood 2+ (Negative) H 08/23/23 12:55 Urine Nitrate Negative (Negative) 08/23/23 12:55 Urine Bilirubin Neg (Negative) 08/23/23 12:55 Urine Urobilinogen Norm mg/dL (Negative) 08/23/23 12:55 Ur Leukocyte Esterase Negative (Negative) 08/23/23 12:55 Urine RBC Rare /hpf (0-2) 08/23/23 12:55 Urine WBC 0-4 /hpf (0-5) H 08/23/23 12:55 Ur Squamous Epith Cells Rare /hpf (0-5) 08/23/23 12:55 Amorphous Sediment 1+ /hpf 08/23/23 12:55 Urine Bacteria Trace /hpf (NONE) 08/23/23 12:55 No radiology studies performed this visit Discharge Plan Discharge Patient Disposition: Home Clinical Impression: Urinary tract infection, Inguinal hernia, Dysuria Condition: Stable Prescriptions: New sulfamethoxazole-trimethoprim [Bactrim DS] 800-160 mg tablet 1 tab PO BID 7 Days Qty: 14 0RF No Action SSD 1 % Cream 1 applic TOPICAL BID Rx Instructions: apply a 1.5 mm thickness prednisone 10 mg tablet 10 mg PO BID ipratropium-albuterol 0.5 mg-3 mg(2.5 mg base)/3 mL solution for nebulization 3 ml INHALATION QID PRN (Reason: Shortness Of Breath Or Wheezing) albuterol sulfate 2.5 mg /3 mL (0.083 %) solution for nebulization 2.5 mg continuous nebulization QID PRN (Reason: Shortness Of Breath Or Wheezing) pantoprazole 40 mg tablet,delayed release (DR/EC) 40 mg PO DAILY albuterol sulfate 90 mcg/actuation HFA aerosol inhaler 2 puff INHALATION Q4H PRN (Reason: Shortness Of Breath Or Wheezing) Mucinex 600 mg tablet extended release 12hr 600 mg PO BID PRN (Reason: Congestion) Discharge Orders: Discharge ED (Routine); Ordered 08/23/23 Ordered By: Lei Olmedo Discharge Diet: Usual diet Discharge Activity: Increase activity as tolerated Patient Instructions: Opioid Safety, Pain Management Activity Restrictions/Additional Instructions: As we discussed he did not have any evidence of a serious condition while you are in the emergency department today. He may have a mild lower urinary tract inflammation or infection that is causing some of your symptoms and therefore we have prescribed an antibiotic to take for 1 week. He also have a hernia in your right lower abdomen while its not an emergency we will refer you to a surgeon for evaluation for possible surgical correction. If your symptoms worsen or new symptoms develop request return to this or the nearest emergency department for reevaluation at any time. Coding Level of Care Code ED Supervisor [employer] for 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
[2023-08-23 13:16] LABS: Bilirubin Urine Neg (Negative); Blood Urine 2+ (Negative); Glucose Urine UA Norm (Normal); Ketones Urine Negative (Negative); Leukocyte Esterase Urine Negative (Negative); Nitrate Urine Negative (Negative); Protein Urine Neg (Negative); Specific Gravity, Urine 1.005 (1.005-1.030); Urine Appearance Clear (CLEAR); Urine Color Straw (Yellow); Urobilinogen Urine Norm (Negative); pH Urine 7 (5-7)
[2023-08-23 13:17] LABS: Add Urine Culture? No; Add Urine Microscopic? YES; Amorphous Sediment Urine 1+ /hpf; Bacteria Urine TRACE /hpf; RBC Urine RARE /hpf (0-2); Squamous Epithelial Cell Urine RARE /hpf (0-5); WBC Urine 0-4 /hpf (0-5)
[2023-08-23] MEDS: sulfamethoxazole-trimeth DS 160-800 mg Tablet 1 TAB PO (13:57)
--- NOTE | 2023-08-24 08:11 | DCPLANNER ---
Referral was sent to general surgery on 08/24/23 at 0812am. Clinic to contact patient.
== END 2023-08-23 14:25 | disposition home or self-care (01) ==
PROVIDERS: Emergency Provider Emergency Medicine
DX: N39.0 Urinary tract infection, site not specified (principal); K40.90 Unilateral inguinal hernia, without obstruction or gangrene, not specified as recurrent; J44.9 Chronic obstructive pulmonary disease, unspecified; Z72.0 Tobacco use
CPT/HCPCS: 81001; 99283

== ENCOUNTER 2023-09-09 16:46 | Emergency (ER) | payer OTHER, SELFPAY ==
[2023-09-09] VITALS (7 sets, daily range): BP systolic 150–174; BP diastolic 105–139; PULSE 115–141; RESP 20–28; O2SAT 94–99; BMI 20.9
--- NOTE | 2023-09-09 17:00 | ECG_ITS ---
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 [email or web address] [email or web address], [facility]woodCustomer [facility]OM (formerly [id number]
--- NOTE | 2023-09-09 17:00 | XRR_ITS ---
PROCEDURE INFORMATION: Exam: XR Chest Exam date and time: 09/09/2023 5:38 PM Age: 68 years old Clinical indication: Shortness of breath TECHNIQUE: Imaging protocol: Radiologic exam of the chest. Views: 1 view. COMPARISON: CR XR chest 1V portable [id number] 07/22/2023 11:16 AM FINDINGS: Lungs: Stable COPD . Pleural spaces: Unremarkable. No pleural effusion. No pneumothorax. Heart/Mediastinum: Unremarkable. No cardiomegaly. Bones/joints: Dextroscoliosis. XR/XR chest 1V portable [id number] IMPRESSION: Stable COPD .
--- NOTE | 2023-09-09 17:20 | ED_ITS ---
HPI - SOB/Dyspnea General: Chief Complaint: Shortness of Breath/Dyspnea Stated Complaint: SOB Time Seen by Provider: 09/09/23 16:52 History of Present Illness: HPI Narrative: patient arrived to the ER via EMS with complaints of shortness of breath. Patient is on hospice for lung cancer. EMS stated patient had received a couple partial breathing treatments earlier today but they did not seem to be working very good. They stated that he would not allow them to give him another breathing treatment nor put him on CPAP. They do know him and CPAP was worked in the past for he is acute respiratory failure with hypercapnia. They did state when they got there his heart rate was approximate 150 beats a minute and here upon arrival it was 130 bpm. Patient is currently on 4.5 L of oxygen per nasal cannula and his saturation is 98%. EMS did start an IV and was successful in giving him 125 mg Solu-Medrol on route. Review of Systems General: Reports: 10 or more systems reviewed and unremarkable except in HPI and below PFSH ED PFSH: Medical History COPD (chronic obstructive pulmonary disease) Social History Smoking and tobacco/nicotine status: current every day tobacco/nicotine user Physical Exam Const: COMMON NORMALS: no acute distress, average body habitus, patient oriented x3, no limitations, healthy appearing, alert and well nourished HENMT: COMMON NORMALS: normocephalic, atraumatic, hearing grossly normal bilaterally, external ears normal, Normal external nose present, moist oral mucous membranes and oropharynx normal HEAD & SCALP: normocephalic and atraumatic NOSE: Normal external nose present EXTERNAL EAR: Yes external ears normal Neck/C-Spine: COMMON NORMALS: no JVD Chest: COMMONS NORMALS: normal inspection of the chest and normal palpation of entire chest wall Resp: COMMON NORMALS: negative for clear to auscultation bilaterally ( Tachypnea with coarse breath sounds throughout) AUSCULTATION: not clear to auscultation bilaterally ( Tachypnea with coarse breath sounds throughout) Cardio: COMMON NORMALS: no JVD, regular rhythm, S1 normal heart sound present, S2 normal heart sound present, No gallops present (Cardio), No clicks present (Cardio), No murmurs present (Cardio) and No rub (Cardio); negative for regular rate ( tachycardic) RATE: abnormal rate ( tachycardic) RHYTHM: regular rhythm HEART SOUNDS: S1 normal heart sound present and S2 normal heart sound present Neuro: COMMON NORMALS: patient oriented x3 SENSORIUM/ORIENTATION: Yes alert Course Vital Signs: Vital signs: Vital Signs Pulse Rate 141 H 09/09/23 17:28 Respiratory Rate 28 H 09/09/23 17:28 Blood Pressure 174/134 09/09/23 16:53 Pulse Oximetry 94 09/09/23 17:28 Oxygen Delivery Me thod Nasal Cannula 09/09/23 17:28 Oxygen Flow Rate 5 09/09/23 17:28 MDM - SOB/Dyspnea Medical Decision Making patient upon arrival was tachycardic and tachypneic. Patient was given Solu- Medrol per EMS patient tried to do a DuoNeb here but was unsuccessful. Patient had lab work chest x-ray and an ABG drawn. EKG. For his time here patient relaxed heart rate decreased to 120 oxygen was decreased and stayed in the 97% range and patient was sleeping soundly upon my reevaluation. Patient be dis charged back to his facility and put on prednisone and increased dose of 50 mg a day for 5 days. With his PCP in approximately 7 to 10 days as needed. Differential Diagnosis Likely acute exacerbation of chronic obstructive airways disease; Unlikely congestive heart failure, community acquired pneumonia, asthma with exacerbation or pulmonary embolism Medical Records I reviewed the patient's medical records. Lab Data I reviewed the patient's lab results. 09/09/23 17:11 09/09/23 17:11 Labs/Radiology: Radiology Impressions Chest X-Ray 09/09/23 17:00 IMPRESSION: Stable COPD . Laboratory Results WBC 15.05 10^3/uL (3.29-11.43) H 09/09/23 17:11 RBC 4.83 10^6/uL (3.85-5.65) 09/09/23 17:11 Hgb 14.70 g/dL (11.27-16.99) 09/09/23 17:11 Hct 46.4 % (37-53) 09/09/23 17:11 MCV 96.1 fl (82-101) 09/09/23 17:11 MCH 30.4 pg (27-33) 09/09/23 17:11 MCHC 31.7 g/dL (30-55) 09/09/23 17:11 RDW 14.3 % (12.1-15.1) 09/09/23 17:11 Plt Count 218 10^3/cmm (157-399) 09/09/23 17:11 MPV 8.8 fL (7.4-10.4) 09/09/23 17:11 Neut % (Auto) 84.9 % 09/09/23 17:11 Lymph % (Auto) 3.6 % 09/09/23 17:11 Johnson % (Auto) 6.8 % 09/09/23 17:11 Eos % (Auto) 0.1 % 09/09/23 17:11 Baso % (Auto) 0.5 % 09/09/23 17:11 Neut # (Auto) 12.78 10^3/uL (1.8-7.7) H 09/09/23 17:11 Lymph # (Auto) 0.5 10^3/uL (0.8-4.8) L 09/09/23 17:11 Johnson # (Auto) 1.0 10^3/uL (0.2-0.9) H 09/09/23 17:11 Eos # (Auto) 0.0 10^3/uL (0.0-0.8) 09/09/23 17:11 Baso # (Auto) 0.1 10^3/uL (0.0-0.1) 09/09/23 17:11 Nucleated RBC % (auto) 0 % 09/09/23 17:11 Nucleated RBCs # 0.0 /100WBC 09/09/23 17:11 Specimen Type Arterial 09/09/23 17:24 Sample Site Brachial, right 09/09/23 17:24 ABG pH 7.35 (7.35-7.45) 09/09/23 17:24 ABG pCO2 60.4 mmHg (35-45) H* 09/09/23 17:24 ABG pO2 133.0 mmHg (80.0-100.0) H 09/09/23 17:24 ABG PO2/FiO2 Ratio 0 09/09/23 17:24 ABG HCO3 33.2 mmol/L (22-26) H 09/09/23 17:24 ABG O2 Saturation 99.3 09/09/23 17:24 ABG Base Excess 5.4 mmol/L (-2.0-2.0) H 09/09/23 17:24 Ivan Test N/a 09/09/23 17:24 A-a O2 Gradient 10.4 mmHg (5-10) H 09/09/23 17:24 Hematocrit 45.9 % (42-52) 09/09/23 17:24 Hgb O2 Saturation 97.6 % (95-100) 09/09/23 17:24 Carboxyhemoglobin 1.4 %THgb (0.4-20.1) 09/09/23 17:24 Methemoglobin 0.3 % (0.4-1.5) L 09/09/23 17:24 Total Hemoglobin 15.0 g/dL (14-18) 09/09/23 17:24 Sodium 141.0 mmol/L (131-143) 09/09/23 17:24 Potassium 3.9 mmol/L (3.5-5.0) 09/09/23 17:24 Glucose 126.0 mg/dL (70-115) H 09/09/23 17:24 Ionized Calcium 1.3 mmol/L (1.1-1.4) 09/09/23 17:24 O2 Delivery Device Nc 09/09/23 17:24 O2 Liters/Min 5.0 % 09/09/23 17:24 FiO2 40.0 % 09/09/23 17:24 Commercial Lease Administrator ID [email or web address] 09/09/23 17:24 Sodium 144 mmol/L (136-145) 09/09/23 17:11 Potassium 4.2 mmol/L (3.5-5.1) 09/09/23 17:11 Chloride 104 mmol/L (98-107) 09/09/23 17:11 Carbon Dioxide 33 mmol/L (22-29) H 09/09/23 17:11 Anion Gap 11.2 (5-19) 09/09/23 17:11 BUN 11 mg/dL (8-23) 09/09/23 17:11 Creatinine 0.8 mg/dL (0.7-1.2) 09/09/23 17:11 GFR Calculation 96.4 mL/min (90-130) 09/09/23 17:11 Glucose 138 mg/dL (65-115) H 09/09/23 17:11 Calculated Osmolality 300 mOsm/kg (285-295) H 09/09/23 17:11 Calcium 8.8 mg/dL (8.5-10.5) 09/09/23 17:11 Total Bilirubin 0.6 mg/dL (0.15-1.2) 09/09/23 17:11 AST 25 U/L (0-40) 09/09/23 17:11 ALT 26 U/L (0-41) 09/09/23 17:11 Alkaline Phosphatase 75 U/L (40-130) 09/09/23 17:11 Total Protein 5.8 g/dL (6.6-8.7) L 09/09/23 17:11 Albumin 3.7 g/dL (3.5-5.2) 09/09/23 17:11 Globulin 2.1 g/dL (1.3-4.6) 09/09/23 17:11 All radiology interpretation(s) finalized by discharge EKG Data EKG 1: I personally reviewed and interpreted this EKG as follows: EKG Interpretation Date: 09/09/23 EKG interpretation time: 16:53 Prior EKG tracings: not available for review Interpretation: EKG showed ventricular rate 136 bpm, UT interval 148, QRS duration 89, QTc of 352, sinus tachycardia with occasional PVC, nonspecific T wave abnormality Discharge Plan Discharge Patient Disposition: Home Clinical Impression: Acute exacerbation of chronic obstructive airways disease Condition: Stable Prescriptions: New prednisone 50 mg tablet 50 mg PO DAILY Qty: 5 0RF No Action SSD 1 % Cream 1 applic TOPICAL BID Rx Instructions: apply a 1.5 mm thickness prednisone 10 mg tablet 10 mg PO BID ipratropium-albuterol 0.5 mg-3 mg(2.5 mg base)/3 mL solution for nebulization 3 ml INHALATION QID PRN (Reason: Shortness Of Breath Or Wheezing) albuterol sulfate 2.5 mg /3 mL (0.083 %) solution for nebulization 2.5 mg continuous nebulization QID PRN (Reason: Shortness Of Breath Or Wheezing) pantoprazole 40 mg tablet,delayed release (DR/EC) 40 mg PO DAILY albuterol sulfate 90 mcg/actuation HFA aerosol inhaler 2 puff INHALATION Q4H PRN (Reason: Shortness Of Breath Or Wheezing) Mucinex 600 mg tablet extended release 12hr 600 mg PO BID PRN (Reason: Congestion) Discharge Orders: Discharge ED (Routine); Ordered 09/09/23 Ordered By: Neeraj Starr Patient Instructions: COPD (Chronic Obstructive Pulmonary Disease) (ED) Activity Restrictions/Additional Instructions: please take all medicines as directed. Please follow-up with your family practice physician within the next 7 to 10 days or sooner as needed for further evaluation and treatment. Coding Level of Care Code ED Hospice Coordinator for 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
[2023-09-09] MEDS: ipratropium-albuterol 3 mL Neb INHALATION (17:21)
[2023-09-09 17:36] LABS: ABG PH Result 7.35 (7.35-7.45); Alveolar-Arterial Oxygen Gradi 10.4 mmHg (5-10); Arterial Blood Gas Hematocrit 45.9 % (42-52); Base Excess ABG 5.4 mmol/L (-2.0-2.0); Blood Gas Operator Identificat AMH; Blood Gas Sample Site Brachial, right; Blood Gas Sample Type Arterial; Carboxyhemoglobin 1.4 %THgb (0.4-20.1); HCO3 ABG 33.2 mmol/L (22-26); HGB O2 Sat 97.6 % (95-100); Ionized Calcium Level - ABG 1.3 mmol/L (1.1-1.4); Methemoglobin 0.3 % (0.4-1.5); Oxygen Device NC; Oxygen Saturation ABG 99.3; PO2 FiO2 Ratio Arterial Blood 0; Potassium Level - ABG 3.9 mmol/L (3.5-5.0)
[2023-09-09 17:37] LABS: Basophils # 0.1 10^3/uL (0.0-0.1); Basophils % 0.5 %; Eosinophils % 0.1 %; Hematocrit 46.4 % (37-53); Lymphocytes # 0.5 10^3/uL (0.8-4.8); Lymphocytes % 3.6 %; Mean Corpuscular HGB Conc 31.7 g/dL (30-55); Mean Corpuscular Hemoglobin 30.4 pg (27-33); Mean Corpuscular Volume 96.1 fl (82-101); Mean Platelet Volume 8.8 fL (7.4-10.4); Monocytes % 6.8 %; Neutrophils # 12.78 10^3/uL (1.8-7.7); Neutrophils % 84.9 %; Nucleated Red Blood Cells % 0 %; Platelet Count 218 10^3/cmm (157-399); Red Blood Count 4.83 10^6/uL (3.85-5.65); Red Cell Distribution Width 14.3 % (12.1-15.1); White Blood Count 15.05 10^3/uL (3.29-11.43)
[2023-09-09 17:38] LABS: Alanine Aminotransferase 26 U/L (0-41); Albumin Level 3.7 g/dL (3.5-5.2); Alkaline Phosphatase 75 U/L (40-130); Anion Gap 11.2 (5-19); Aspartate Amino Transferase 25 U/L (0-40); Blood Urea Nitrogen 11 mg/dL (8-23); Calcium 8.8 mg/dL (8.5-10.5); Carbon Dioxide 33 mmol/L (22-29); Chloride 104 mmol/L (98-107); Globulin 2.1 g/dL (1.3-4.6); Glomerular Filtration Rate 96.4 mL/min (90-130); Glucose 138 mg/dL (65-115); Osmolality Calculated 300 mOsm/kg (285-295); Potassium 4.2 mmol/L (3.5-5.1); Sodium 144 mmol/L (136-145); Total Bilirubin 0.6 mg/dL (0.15-1.2); Total Protein 5.8 g/dL (6.6-8.7)
[2023-09-09 17:38] LABS: ABG PCO2 60.4 mmHg (35-45)
[2023-09-09] MEDS: LORazepam 2 mg/mL INJ 1 mL 0.5 MG IVP (18:26)
[2023-09-09] MEDS: sodium chloride 0.9% 1,000 ML 999 ML IV (18:29)
== END 2023-09-09 19:40 | disposition home or self-care (01) ==
PROVIDERS: Emergency Provider Emergency Medicine
DX: J44.1 Chronic obstructive pulmonary disease with (acute) exacerbation (principal); Z72.0 Tobacco use
CPT/HCPCS: 36415; 36600; 71045; 80051; 80053; 82330; 82805; 85025; 93005; 94640; 96374; 99285; J2060; J7030

== ENCOUNTER 2023-09-21 11:09 | Inpatient (IN) | payer OTHER, SELFPAY ==
[2023-09-21] VITALS (13 sets, daily range): BP systolic 142–173; BP diastolic 98–113; PULSE 82–148; RESP 14–36; TEMP 36.4–36.9; O2SAT 90–100; BMI 20.9; BMI 20.5
--- NOTE | 2023-09-21 11:18 | W.ED.ABDPA2 ---
HPI - Abdominal Pain General: Chief Complaint: ER Hold Stated Complaint: abd pain/ hernia Time Seen by Provider: 09/21/23 11:17 History of Present Illness: 68-year-old male presents emergency department with complaints of right lower quadrant abdominal pain. He also states he has had increased shortness of breath. He states he has a history of lung cancer and is currently on supplemental oxygen but has not had to increase his supplemental oxygen levels. He states he does have abdominal pain and has had this in the past because he has a hernia that is unable to be repaired secondary to his lung problems. He states his current pain is a 7 out of 10 and aching. He denies hematemesis or hematochezia. He denies vomiting. He states that he does have nausea. He does appear to be very agitated and irritated upon arrival to the emergency department. Associated Symptoms: Reports nausea Review of Systems General: Reports: 10 or more systems reviewed and unremarkable except in HPI and below Resp: Reports: dyspnea and wheezing GI: Reports: abdominal pain and nausea [facility] ED PFSH: Medical History COPD (chronic obstructive pulmonary disease) Social History Smoking and tobacco/nicotine status: current every day tobacco/nicotine user Physical Exam Narrative: EXAM NARRATIVE: Constitutional: the patient appears well nourished and with normal development. Vital signs reviewed as documented. HENMT: Normocephalic, atraumatic. Extermal ears with normal appearance without drainage. Nose without drainage, normal appearance. Mucus membranes moist. Neck is supple, No jugular venous distension, trachea is midline, no appreciable carotid bruits. No lymphadenopathy. No meningeal signs. Flexion, extension and lateral rotation is without pain. Eyes: Pupils are equal, round, reactive to light and accommodation. No scleral icterus. Extra-ocular movement are intact. Thorax is symmetrical and with equal rise and fall with respirations. Resp: Bilateral expiratory wheezes. Breath sounds are decreased more so on the right than the left. Supplemental oxygen in place at 4 L nasal cannula. Cardio: Regular rate and rhythm. Positive S1, S2. No appreciable murmurs, rubs or gallops. GI: Abdominal exam reveals normal bowel sounds to all quadrants. No organomegaly. No obvious palpable masses noted. No hepatomegally appreciated. Soft, slight tender to palpation right lower quadrant. With distraction it does not appear that the patient has abdominal pain on palpation. Extremity: Extremities are non-edematous and both femoral and pedal pulses are 2+ and equal bilaterally. Moves all extremities well, sensation in all extremities. Neuro: Alert and oriented x4, person, place, time and situation. Cranial nerves II through XII are grossly intact, there is no focal neurological deficits that I can appreciate at present. Motor strength in the upper and lower extremities are equal and bilateral 5/5. Psych: Cooperative, calm, normal thought process, appropriate judgment. Skin: No lesions, rashes. No gross abnormalities noted. Back: Symmetrical, no obvious deformity, No CVA tenderness Course Vital Signs: Vital signs: Vital Signs Temperature 98.5 F 09/21/23 11:17 Pulse Rate 107 H 09/21/23 14:07 Respiratory Rate 14 09/21/23 14:07 Blood Pressure 149/113 09/21/23 12:07 Pulse Oximetry 98 09/21/23 14:07 Oxygen Delivery Me thod Room Air 09/21/23 14:07 Oxygen Flow Rate 4 09/21/23 13:10 MDM - Abdominal Pain Medical Decision Making Physical exam completed and documented, I will obtain a CBC, CMP lipase and chest x-ray as well as abdominal plain film to evaluate the patient for additional medical needs. At present the patient is calm requesting that the TV be turned on and that he has something to drink. I will provide him a DuoNeb breathing treatment for his increased wheezing. Medical Records I reviewed the patient's medical records. Lab Data I reviewed the patient's lab results. 09/21/23 11:31 09/21/23 11:31 Labs/Radiology: Radiology Impressions Abdomen X-Ray 09/21/23 11:23 IMPRESSION: Nonspecific. Chest X-Ray 09/21/23 11:23 IMPRESSION: Acute cardiopulmonary disease. Laboratory Results WBC 16.61 10^3/uL (3.29-11.43) H 09/21/23 11: RBC 5.03 10^6/uL (3.85-5.65) 09/21/23 11:31 Hgb 15.70 g/dL (11.27-16.99) 09/21/23 11: Hct 49.3 % (37-53) 09/21/23 11:31 MCV 98.0 fl (82-101) 09/21/23 11:31 MCH 31.2 pg (27-33) 09/21/23 11:31 MCHC 31.8 g/dL (30-55) 09/21/23 11:31 RDW 14.4 % (12.1-15.1) 09/21/23 11:31 Plt Count 207 10^3/cmm (157-399) 09/21/23 11:31 MPV 8.9 fL (7.4-10.4) 09/21/23 11:31 Neut % (Auto) 85.9 % 09/21/23 11:31 Lymph % (Auto) 3.5 % 09/21/23 11:31 [place] % (Auto) 7.2 % 09/21/23 11:31 Eos % (Auto) 0.1 % 09/21/23 11:31 Baso % (Auto) 0.4 % 09/21/23 11:31 Neut # (Auto) 14.28 10^3/uL (1.8-7.7) H 09/21/23 11:31 Lymph # (Auto) 0.6 10^3/uL (0.8-4.8) L 09/21/23 11:31 [place] # (Auto) 1.2 10^3/uL (0.2-0.9) H 09/21/23 11:31 Eos # (Auto) 0.0 10^3/uL (0.0-0.8) 09/21/23 11:31 Baso # (Auto) 0.1 10^3/uL (0.0-0.1) 09/21/23 11:31 Nucleated RBC % (auto) 0 % 09/21/23 11:31 Nucleated RBCs # 0.0 /100WBC 09/21/23 11:31 Sodium 143 mmol/L (136-145) 09/21/23 11:31 Potassium 4.5 mmol/L (3.5-5.1) 09/21/23 11:31 Chloride 100 mmol/L (98-107) 09/21/23 11:31 Carbon Dioxide 38 mmol/L (22-29) H 09/21/23 11:31 Anion Gap 9.5 (5-19) 09/21/23 11:31 BUN 20 mg/dL (8-23) 09/21/23 11:31 Creatinine 0.8 mg/dL (0.7-1.2) 09/21/23 11:31 GFR Calculation 96.4 mL/min (90-130) 09/21/23 11:31 Glucose 92 mg/dL (65-115) 09/21/23 11:31 Calculated Osmolality 298 mOsm/kg (285-295) H 09/21/23 11:31 Lactic Acid 3.4 mmol/L (0.5-2.2) H 09/21/23 11:31 Lactic Acid (Sepsis) 1.1 mmol/L (0.5-2.2) 09/21/23 13:50 Calcium 9.3 mg/dL (8.5-10.5) 09/21/23 11:31 Total Bilirubin 0.7 mg/dL (0.15-1.2) 09/21/23 11:31 AST 16 U/L (0-40) 09/21/23 11:31 ALT 21 U/L (0-41) 09/21/23 11:31 Alkaline Phosphatase 71 U/L (40-130) 09/21/23 11:31 Total Protein 5.5 g/dL (6.6-8.7) L 09/21/23 11:31 Albumin 3.6 g/dL (3.5-5.2) 09/21/23 11:31 Globulin 1.9 g/dL (1.3-4.6) 09/21/23 11:31 Procalcitonin 0.06 ng/mL (0-0.5) 09/21/23 11:31 All radiology interpretation(s) finalized by discharge Discharge Plan Discharge Patient Disposition: Admitted As Inpatient Admit Provider: Zoya Michaels Clinical Impression: Diverticulitis, Abdominal pain Condition: Stable Coding Level of Care Code ED [employer] 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
--- NOTE | 2023-09-21 11:23 | XRR_ITS ---
PROCEDURE INFORMATION: Exam: XR Abdomen Exam date and time: 09/21/2023 11:29 AM Age: 68 years old Clinical indication: Abdominal pain; Generalized; Additional info: Abd pain TECHNIQUE: Imaging protocol: Radiologic exam of the abdomen. Views: Frontal supine view of the abdomen. 1 View. COMPARISON: CR XR chest 1V portable [id number] 09/21/2023 11:29 AM FINDINGS: Gastrointestinal tract: Normal. No bowel dilation. Nonspecific bowel gas pattern. No dilated bowel. Gas is present within both colon and small bowel. Bones/joints: Unremarkable. Other findings: No erect image was obtained. XR/XR abdomen 1V* [id number] IMPRESSION: Nonspecific.
--- NOTE | 2023-09-21 11:23 | XRR_ITS ---
PROCEDURE INFORMATION: Exam: XR Chest Exam date and time: 09/21/2023 11:29 AM Age: 68 years old Clinical indication: Dyspnea TECHNIQUE: Imaging protocol: Radiologic exam of the chest. Views: 1 view. COMPARISON: CR (CHEST, ) 09/09/2023 5:38 PM FINDINGS: Lungs: Mild interstitial fibrosis in the lingula. Pleural spaces: Unremarkable. No pleural effusion. No pneumothorax. Heart/Mediastinum: Unremarkable. No cardiomegaly. Bones/joints: Right thoracic curvature. XR/XR chest 1V portable [id number] IMPRESSION: Acute cardiopulmonary disease.
[2023-09-21 11:42] LABS: Basophils # 0.1 10^3/uL (0.0-0.1); Basophils % 0.4 %; Eosinophils % 0.1 %; Hematocrit 49.3 % (37-53); Lymphocytes # 0.6 10^3/uL (0.8-4.8); Lymphocytes % 3.5 %; Mean Corpuscular HGB Conc 31.8 g/dL (30-55); Mean Corpuscular Hemoglobin 31.2 pg (27-33); Mean Platelet Volume 8.9 fL (7.4-10.4); Monocytes # 1.2 10^3/uL (0.2-0.9); Monocytes % 7.2 %; Neutrophils # 14.28 10^3/uL (1.8-7.7); Neutrophils % 85.9 %; Nucleated Red Blood Cells % 0 %; Platelet Count 207 10^3/cmm (157-399); Red Blood Count 5.03 10^6/uL (3.85-5.65); Red Cell Distribution Width 14.4 % (12.1-15.1); White Blood Count 16.61 10^3/uL (3.29-11.43)
[2023-09-21] MEDS: ipratropium-albuterol 3 mL Neb INHALATION ×2 (11:50→21:25)
[2023-09-21 11:54] LABS: Lactic Sepsis W/Reflex 3.4 mmol/L (0.5-2.2)
[2023-09-21 11:55] LABS: Alanine Aminotransferase 21 U/L (0-41); Albumin Level 3.6 g/dL (3.5-5.2); Alkaline Phosphatase 71 U/L (40-130); Anion Gap 9.5 (5-19); Aspartate Amino Transferase 16 U/L (0-40); Blood Urea Nitrogen 20 mg/dL (8-23); Calcium 9.3 mg/dL (8.5-10.5); Carbon Dioxide 38 mmol/L (22-29); Chloride 100 mmol/L (98-107); Globulin 1.9 g/dL (1.3-4.6); Glomerular Filtration Rate 96.4 mL/min (90-130); Glucose 92 mg/dL (65-115); Osmolality Calculated 298 mOsm/kg (285-295); Potassium 4.5 mmol/L (3.5-5.1); Sodium 143 mmol/L (136-145); Total Bilirubin 0.7 mg/dL (0.15-1.2); Total Protein 5.5 g/dL (6.6-8.7)
[2023-09-21 12:02] LABS: Procalcitonin 0.06 ng/mL (0-0.5)
--- NOTE | 2023-09-21 12:09 | CT_ITS ---
WS: [id number] CT ABDOMEN PELVIS TECHNIQUE: Contrast-enhanced CT of the abdomen and pelvis with coronal and sagittal reformatted image s. CLINICAL INFORMATION: Abdominal pain COMPARISON: None. DLP: 334.[address] scans at [facility] use at least one of these dose optimization techniques: automated e xposure control; mA and/or kV adjustment per patient size (includes targeted exams where dose is matc hed to clinical indication); or iterative reconstruction. FINDINGS: Thickening of the sigmoid colon with surrounding inflammatory stranding compatible with acute diverti culitis. No evidence of drainable abscess or fluid collection. Sigmoid colon constipation. Numerous hepatic cysts. Lung bases are well aerated. Normal portal vein and splenic vein. Normal GE j unction. Tiny fat-containing umbilical hernia. Normal spleen. Adrenal glands are normal. Normal renal parenchymal enhancement. No hydronephrosis. Bilateral renal cysts. Urine distended bladder. Normal a ppendix in the RIGHT lower quadrant. No evidence of acute appendicitis. Fat-containing RIGHT inguinal hernia with small amount of fluid along the inguinal canal. No herniated bowel. Gallbladder is contr acted. Normal caliber abdominal aorta. Mild aortic calcification. Disc space narrowing worse at L4-5. IMPRESSION: 1. Findings compatible with acute sigmoid diverticulitis. No drainable abscess or fluid collection. 2. Normal appendix in the RIGHT lower quadrant. 3. Numerous hepatic cysts and renal cysts. 4. Fat-containing RIGHT inguinal hernia with small amount of fluid along the inguinal canal. No chel iated bowel. Notified Fermín Woods MD at 09/21/2023 1:21 PM.
[2023-09-21] MEDS: iohexol 350 mg/mL 500 mL Btl (per mL) IV (12:54)
[2023-09-21 13:27] LABS: Reflex Lactate Order REFLEX LACTIC ORDERD
[2023-09-21] MEDS: metroNIDAZOLE IV 500 MG/100 ML PREMIX 100 MG IV (14:03)
[2023-09-21 14:18] LABS: Lactic Acid level (Lactate) 1.1 mmol/L (0.5-2.2)
[2023-09-21] MEDS: levofloxacin-dextrose 5 % 750 MG/150 ML PREMIX 100 MG IV (14:57)
--- NOTE | 2023-09-21 14:58 | PC.NURSE ---
PT WAS BLEEDING AROUND IV, I TOOK VENGAURD OFF AND REASSUERD IT WAS WORKING. REDRESSED IV AND CLEANED SIGN WITH STERILE GAUZE. PT WAS NOT HAPPY ABOUT THIS AND YELLED AT EM THE WHOLE TIME SAYING I WAS NOT DOING MY JOB WHEN INFACT NURSE WAS. PT WANTED NURSE TO LEAVE HIM WITH A BLOODY IV AND DIDNT WANT NURSE TO TOUCH IT, NURSE TOLD HIM IF I DIDNT REDRESS IT OR MAKE SURE IT WAS WORKING THEN I HAD TO PLACE ANOTHER ONE. PT TOLD NURSE HE COULD NOT WAIT UNTIL I WAS OFF SHIFT. NURSE TOLD HIM IM SORRY HE FELT THAT WAY BUT I HAVE NOT TREATED HIM ANY DIFFERENT THAN I FEEL I TREAT ANYONE.
[2023-09-21] MEDS: lactated ringers 1,000 ML 100 ML IV (16:44)
--- NOTE | 2023-09-21 18:00 | P.HP_ITS ---
Providers/Chief Complaint 2 Admitting Physician: Zoya Michaels MD Chief Complaint: abd pain/ hernia History of Present Illness Axel Landry is a 68 year old male Medications/Allergies Home Medications Medication Instructions Recorded Confirmed Last Taken Type albuterol sulfate 2.5 mg/3 mL 2.5 mg continuous nebulization QID 07/22/23 09/21/23 Unknown History (0.083 %) solution for nebulization PRN Shortness Of Breath Or Wheezing albuterol sulfate 90 mcg/actuation 2 puff inhalation Q4H PRN 07/22/23 09/21/23 Unknown History aerosol inhaler Shortness Of Breath Or Wheezing guaifenesin 600 mg tablet, 600 mg PO BID PRN Congestion 07/22/23 09/21/23 Unknown History extended release 12 hr (Mucinex) ipratropium 0.5 mg-albuterol 3 mg 3 ml inhalation QID PRN Shortness 07/22/23 09/21/23 Unknown History (2.5 mg base)/3 mL nebulization Of Breath Or Wheezing soln prednisone 10 mg tablet 10 mg PO BID 07/22/23 09/21/23 Unknown History Allergies Allergy/AdvReac Type Severity Reaction Status Date / Time No Known Allergies Allergy Verified 09/21/23 11:26 PFSH Acute 2 PFSH: Medical History COPD (chronic obstructive pulmonary disease) Social History Smoking and tobacco/nicotine status: current every day tobacco/nicotine user Vitals/I&O/Wt Last Vital Signs Temp 98.5 F 09/21/23 11:17 Pulse 115 H 09/21/23 17:11 Resp 18 09/21/23 17:11 BP 142/98 09/21/23 17:11 Pulse Ox 96 09/21/23 17:11 O2 Del Method Nasal Cannula 09/21/23 15:07 O2 Flow Rate 4 09/21/23 13:10 09/21/23 09/21/23 09/21/23 06:59 14:59 22:59 Intake Total 250 / 250 Output Total 30 / 30 Balance 220 / 220 Weight last 48 hrs Weight 58.967 kg Data 09/21/23 11:31 09/21/23 11:31 Micro: Microbiology 09/21/23 13:50 Blood Culture - Preliminary Blood SPECIMEN COLLECTED 09/21/23 13:50 Blood Culture - Preliminary Blood SPECIMEN COLLECTED Coding Level of Care Code Acute Code for Chg Fwd Diagnoses
[2023-09-21] MEDS: piperacillin-tazobactam 3.375 GM in sodium chloride 0.9% (plus) 50 ML IV (18:46)
[2023-09-21 18:49] LABS: Add Urine Microscopic? YES; Bacteria Urine TRACE /hpf; Bilirubin Urine Neg (Negative); Blood Urine 2+ (Negative); Glucose Urine UA Norm (Normal); Ketones Urine Negative (Negative); Leukocyte Esterase Urine Negative (Negative); Mucus Urine TRACE /hpf; Nitrate Urine Negative (Negative); Protein Urine Neg (Negative); RBC Urine 0-4 /hpf (0-2); Urine Appearance Clear (CLEAR); Urine Color Yellow (Yellow); Urobilinogen Urine Norm (Negative); WBC Urine 0-4 /hpf (0-5); pH Urine 7 (5-7)
[2023-09-21 18:50] LABS: Add Urine Culture? No; Calcium Oxalate Crystals Urine 15-25 /hpf
[2023-09-21 18:55] LABS: Iron 83 ug/dL (59-158); Thyroid Stimulating Hormone 0.84 uIU/mL (0.27-4.20); Total Iron Binding Capacity 244 mcg/dl; Unsaturated Iron Binding 161 ug/dL (112-347); Vitamin B12 353 pg/mL (232-1245)
--- NOTE | 2023-09-21 18:56 | P.HP_ITS ---
Providers/Chief Complaint 2 Admitting Physician: Zoya Michaels MD Chief Complaint: abd pain/ hernia History of Present Illness Axel Landry is a 68 year old male with Past medical history of advanced COPD on chronic oxygen, hospice with [facility] was brought into the ER today because of worsening abdominal pain over the last 1 week. Patient states he has abdominal hernia for which she gets pain on and off but this time for last 1 week pain has been getting worse along with diarrhea for last 1 week. Currently pain is more in lower abdomen, cramping time not relieved after bowel movement. Last bowel movement was earlier today morning which showed diarrhea without any active signs of bleeding. Denies any nausea, vomiting but does state appetite has been decreasing. Patient on examination looks in respiratory distress which as per him is his baseline. In the ER patient was found to have acute colitis on CT abdomen pelvis has hospitalist service was requested. Review of Systems 2 General: Reports: 10 or more systems reviewed and unremarkable except in HPI and below Const: Denies: fever(s), chills, body aches, change in appetite, change in weight, malaise, night sweats, diaphoresis, change in sleep pattern, daytime sleepiness or snoring Eyes: Denies: change in vision, blurry vision, photophobia, eye discomfort or eye discharge ENMT: Denies: throat pain, enlarged tonsils, hoarseness, mouth pain, oral sores, dry mouth, tinnitus, nasal congestion or post nasal drip Card: Denies: chest pain, palpitations, irregular heart rhythm, edema, swelling of feet/ankles, lightheadedness, syncope, pre-syncope, dyspnea on exertion, orthopnea, leg pain with exertion or acrocyanosis Resp: Denies: dyspnea, productive cough, non-productive cough, wheezing, stridor, pain on inspiration, change in phlegm color, hemoptysis or chest congestion GI: Denies: abdominal pain, nausea, vomiting, hematemesis, coffee ground emesis, dysphagia, heartburn, diarrhea, constipation, bloating, GI cramping, change in bowel habits, pain on defecation, hematochezia or melena : Denies: flank pain, difficulty urinating, dysuria, urinary frequency, urinary urgency, urinary hesitancy, urinary dribbling, difficulty starting urination, change in urine stream, nocturia or hematuria Musc: Denies: neck pain, back pain, extremity pain, joint pain, joint swelling, joint redness, joint stiffness or limited range of motion Neuro: Denies: headache(s), numbness in extremities, weakness in extremities, sensory changes, lack of coordination, difficulty walking, frequent falls, dizziness, vertigo, confusion, Slurred speech present, difficulty communicating thoughts or seizure-like activity Psych: Denies: anxiety, depression, mood swings, panic attacks, hopelessness or irritability Endo: Denies: polyuria, polydipsia, tired all the time, cold intolerance, excessive sweating, flushing or heat intolerance Adrian/Lymph: Denies: easy bruising or easy bleeding All/Imm: Denies: tongue swelling, facial swelling or acute wheezing Medications/Allergies Home Medications Medication Instructions Recorded Confirmed Last Taken Type albuterol sulfate 2.5 mg/3 mL 2.5 mg continuous nebulization QID 07/22/23 09/21/23 Unknown History (0.083 %) solution for nebulization PRN Shortness Of Breath Or Wheezing albuterol sulfate 90 mcg/actuation 2 puff inhalation Q4H PRN 07/22/23 09/21/23 Unknown History aerosol inhaler Shortness Of Breath Or Wheezing guaifenesin 600 mg tablet, 600 mg PO BID PRN Congestion 07/22/23 09/21/23 Unknown History extended release 12 hr (Mucinex) ipratropium 0.5 mg-albuterol 3 mg 3 ml inhalation QID PRN Shortness 07/22/23 09/21/23 Unknown History (2.5 mg base)/3 mL nebulization Of Breath Or Wheezing soln prednisone 10 mg tablet 10 mg PO BID 07/22/23 09/21/23 Unknown History Allergies Allergy/AdvReac Type Severity Reaction Status Date / Time No Known Allergies Allergy Verified 09/21/23 11:26 PFSH Acute 2 PFSH: Medical History (Updated 09/22/23 @ 12:59 by Dami Garcia MD) Abdominal hernia On home oxygen therapy Hospice care COPD (chronic obstructive pulmonary disease) Social History Smoking and tobacco/nicotine status: current every day tobacco/nicotine user Vitals/I&O/Wt Last Vital Signs Temp 97.9 F 09/22/23 00:29 Pulse 98 09/22/23 08:14 Resp 20 H 09/22/23 08:14 BP 144/93 09/22/23 00:29 Pulse Ox 97 09/22/23 08:14 O2 Del Method Nasal Cannula 09/22/23 08:14 O2 Flow Rate 2 09/22/23 08:14 09/21/23 09/22/23 09/22/23 22:59 06:59 14:59 Intake Total 300 / 300 1050.000 / 1350.000 360 / 360 Output Total 30 / 30 350 / 380 Balance 270 / 270 700.000 / 970.000 360 / 360 Weight last 48 hrs Weight 57.606 kg Weight 58.967 kg Physical Exam 2 Narrative: General: In acute distress because of shortness of breath, abdominal pain, AO x3, NC oxygen supplementation HEENT: PERRLA, pupils bilaterally equal and reactive Chest: Bilateral bronchial breath sounds all over lung maldonado with diffuse rhonchi and crackles CVS: S1-S2 regular, no murmurs, no tachycardia, no gallops, no rubs Abdomen: Soft, tender in lower abdomen, no organomegaly, bowel sounds present sluggish, morbidly obese Neuro: No focal deficits, no facial deformity, AO x3, power 5/5 in all limbs Data 09/22/23 04:28 09/22/23 04:28 Micro: Microbiology 09/21/23 13:50 Blood Culture - Preliminary Blood SPECIMEN COLLECTED 09/21/23 13:50 Blood Culture - Preliminary Blood SPECIMEN COLLECTED A&P Assessment and plan (1) Abdominal pain: Insetting of diverticulitis seen on CT abdomen pelvis. Patient does have history of abdominal hernia. No concerns for strangulation on CT abdomen pelvis. (2) Diverticulitis: Start on IV Zosyn. IV hydration with normal saline at 100 cc/h. Clear liquid diet. Check stool studies, blood culture. (3) COPD (chronic obstructive pulmonary disease): Advanced COPD. On hospice. Oxygen supplementation keeping saturation over 88%. DuoNebs every 6 hour, budesonide twice daily. (4) Hospice care: Plan CODE STATUS: Discussed in detail with patient and his friend/DPOA Mr. Mathews over the phone. We discussed patient does have significant COPD and in case if he ends up being on ventilator there is a high chance he would be ventilator dependent. Patient verbalized understanding. Wants everything which could be done to keep him alive. But he wants to remain on hospice. CODE STATUS full code. Clear liquid diet Protonix for PUD prophylaxis Heparin 5000 every 12 hourly for DVT prophylaxis. Attestations 2 Medical Necessity Statement*: Admission for 2 midnights for management of acute diverticulitis in a patient with history of severe COPD on hospice care Diagnoses Abdominal pain R10.9 Diverticulitis K57.92 COPD (chronic obstructive pulmonary disease) J44.9 Hospice care Z51.5
[2023-09-21] MEDS: budesonide 0.5 mg/2 mL Neb INHALATION (21:27)
[2023-09-22] VITALS (7 sets, daily range): BP systolic 133–144; BP diastolic 77–93; PULSE 75–111; RESP 16–20; TEMP 36.6–36.9; O2SAT 96–98
[2023-09-22] MEDS: piperacillin-tazobactam 3.375 GM in sodium chloride 0.9% (plus) 50 ML IV ×3 (02:21→15:33)
[2023-09-22] MEDS: lactated ringers 1,000 ML 100 ML IV (06:00)
[2023-09-22] MEDS: ipratropium-albuterol 3 mL Neb INHALATION ×3 (08:14→19:54)
[2023-09-22] MEDS: budesonide 0.5 mg/2 mL Neb INHALATION ×2 (08:14→19:54)
[2023-09-22 08:23] LABS: Lactic Sepsis W/Reflex 0.6 mmol/L (0.5-2.2)
[2023-09-22 08:27] LABS: Alanine Aminotransferase 15 U/L (0-41); Alkaline Phosphatase 56 U/L (40-130); Anion Gap 11.6 (5-19); Aspartate Amino Transferase 13 U/L (0-40); Blood Urea Nitrogen 21 mg/dL (8-23); Calcium 8.7 mg/dL (8.5-10.5); Carbon Dioxide 32 mmol/L (22-29); Chloride 102 mmol/L (98-107); Chol HDL Ratio 2.59 mg/dL (1.0-5.00); Cholesterol 153 mg/dL (0-200); Globulin 1.4 g/dL (1.3-4.6); Glomerular Filtration Rate 84.2 mL/min (90-130); Glucose 77 mg/dL (65-115); HDL Cholesterol 59 mg/dL (60-100); LDL Cholesterol Calculated 80 mg/dL (50-129); LDL HDL Ratio 1.36 RATIO (0.00-3.22); Osmolality Calculated 296 mOsm/kg (285-295); Phosphorus 2.7 mg/dL (2.5-4.5); Potassium 3.6 mmol/L (3.5-5.1); Sodium 142 mmol/L (136-145); Total Protein 4.4 g/dL (6.6-8.7); Triglycerides 72 mg/dL (0-150)
[2023-09-22 08:28] LABS: Estmated Average Glucose 103; Folate Level 6.8 ng/mL (4.5-32.2); Hemoglobin A1C 5.2 % (4.0-6.0)
[2023-09-22 09:19] LABS: Basophils # 0.1 10^3/uL (0.0-0.1); Basophils % 0.4 %; Eosinophils # 0.1 10^3/uL (0.0-0.8); Eosinophils % 0.7 %; Hematocrit 41.4 % (37-53); Lymphocytes # 1.5 10^3/uL (0.8-4.8); Lymphocytes % 11.1 %; Mean Corpuscular HGB Conc 32.1 g/dL (30-55); Mean Corpuscular Hemoglobin 31.1 pg (27-33); Mean Platelet Volume 9.1 fL (7.4-10.4); Monocytes # 1.2 10^3/uL (0.2-0.9); Monocytes % 8.9 %; Neutrophils % 74.7 %; Nucleated Red Blood Cells % 0 %; Platelet Count 193 10^3/cmm (157-399); Red Blood Count 4.27 10^6/uL (3.85-5.65); Red Cell Distribution Width 14.5 % (12.1-15.1); White Blood Count 13.54 10^3/uL (3.29-11.43)
--- NOTE | 2023-09-22 09:54 | PC.CHAP ---
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 [] Patient/Family/Request visit [] Outpatient visit [] Follow-up visit [] Physician referral [] Code/Alert [] Routine visit [] Staff referral [] Actively dying [] Patient sleeping [] Family support [] [] Out of room [] Palliative care [] [x] Receiving care in room [] Pre-surgical visit [] Trauma [] Long length of stay [] ICU visit [] Other: Relational/Emotional Strength [] Patient feels connected with others/family/visitors/staff [] Distress [] Loneliness/isolation [] Abandonment Spirituality of Patient [] Person of Susana [] Attends Hoahaoism of their Susana [] Believes in Prayer [] Reads Bible or Mandaeism materials [] There are Spiritual issues to be addressed French Edge Operator Interventions [] Prayer [] Active listening [] Non-anxious presence [] Spiritual/emotional support [] Crisis/trauma care [] Spiritual counseling [] Bereavement support [] Provided bereavement packet [] Provided Bible/devotional materials [] Provided toy/stuffed animal, coloring book to patient or family member [] Provided Communion [] Anointing/[place] [] Salvation [] Completed spiritual assessment [] Other: Impact on Illness or Injury [] Angry [] Fearful [] Anxious [] Often cries [] Exhaustion [] Unable to work [] Unable to attend holiness [] Unable to walk/stand [] Unable to read [] Unable to drive [] Unable to eat/drink [] Unable to sleep [] Unable to be with family [] Patient intubated [] Other: Summary Time spent with patient
--- NOTE | 2023-09-22 13:05 | P.PN_ITS ---
Subjective 2 Subjective: No acute events overnight. Patient states he is feeling better. Denies any further abdominal pain. Able to tolerate clear liquid diet. Denies any nausea, vomiting, headache. Looks more comfortable than yesterday. Afebrile over last 24 hours. Remains on 2 L of supplementation saturating more than 95%. Vitals/I&O/Wt Last Vital Signs Temp 97.9 F 09/22/23 00:29 Pulse 98 09/22/23 08:14 Resp 20 H 09/22/23 08:14 BP 144/93 09/22/23 00:29 Pulse Ox 97 09/22/23 08:14 O2 Del Method Nasal Cannula 09/22/23 08:14 O2 Flow Rate 2 09/22/23 08:14 09/21/23 09/22/23 09/22/23 22:59 06:59 14:59 Intake Total 300 / 300 1050.000 / 1350.000 360 / 360 Output Total 30 / 30 350 / 380 Balance 270 / 270 700.000 / 970.000 360 / 360 Weight last 48 hrs Weight 57.606 kg Weight 58.967 kg Physical Exam 2 Narrative: General: No acute distress, AO x3, NC oxygen supplementation HEENT: PERRLA, pupils bilaterally equal and reactive Chest: Bilateral bronchial breath sounds all over lung maldonado with diffuse rhonchi and crackles CVS: S1-S2 regular, no murmurs, no tachycardia, no gallops, no rubs Abdomen: Soft, tender in lower abdomen, no organomegaly, bowel sounds present sluggish, morbidly obese Neuro: No focal deficits, no facial deformity, AO x3, power 5/5 in all limbs Data 09/22/23 04:28 09/22/23 04:28 Micro: Microbiology 09/21/23 13:50 Blood Culture - Preliminary Blood SPECIMEN COLLECTED 09/21/23 13:50 Blood Culture - Preliminary Blood SPECIMEN COLLECTED A&P Assessment and plan (1) Abdominal pain: Insetting of diverticulitis seen on CT abdomen pelvis. Patient does have history of abdominal hernia. No concerns for strangulation on CT abdomen pelvis. (2) Diverticulitis: Continue with IV Zosyn. Continue with IV hydration for now. Advance to mechanical soft diet. Stool studies still pending. Blood cultures so far negative. (3) COPD (chronic obstructive pulmonary disease): Advanced COPD. On hospice. Oxygen supplementation keeping saturation over 88%. DuoNebs every 6 hour, budesonide twice daily. (4) Hospice care: Plan CODE STATUS: Discussed in detail with patient and his friend/DPOA Mr. Mathews over the phone. We discussed patient does have significant COPD and in case if he ends up being on ventilator there is a high chance he would be ventilator dependent. Patient verbalized understanding. Wants everything which could be done to keep him alive. But he wants to remain on hospice. CODE STATUS full code. Clear liquid diet Protonix for PUD prophylaxis Heparin 5000 every 12 hourly for DVT prophylaxis. Discharge plan: If patient continues to improve plan to discharge in next 24 hours on oral antibiotics. Attestations 2 Medical Necessity Statement*: Requires further hospitalization for management of acute diverticulitis Diagnoses Abdominal pain R10.9 Diverticulitis K57.92 COPD (chronic obstructive pulmonary disease) J44.9 Hospice care Z51.5
[2023-09-22] MEDS: heparin 5,000 unit/mL INJ 1 mL 5000 UNIT SUBCUT (15:33)
[2023-09-22] MEDS: pantoprazole 40 mg SDV IVP (15:33)
[2023-09-23] VITALS: BP 131/92; PULSE 96; RESP 18; TEMP 36.8; O2SAT 98
[2023-09-23 02:55] VITALS: PULSE 98; RESP 17; O2SAT 98
[2023-09-23] MEDS: ipratropium-albuterol 3 mL Neb INHALATION ×2 (02:55→07:57)
[2023-09-23] MEDS: heparin 5,000 unit/mL INJ 1 mL 5000 UNIT SUBCUT (02:56)
[2023-09-23] MEDS: lactated ringers 1,000 ML 100 ML IV (02:56)
[2023-09-23] MEDS: piperacillin-tazobactam 3.375 GM in sodium chloride 0.9% (plus) 50 ML IV ×2 (02:57→10:58)
[2023-09-23 04:00] VITALS: BP 128/88; PULSE 100; RESP 19; TEMP 36.7; O2SAT 98
[2023-09-23 05:03] LABS: Basophils # 0.1 10^3/uL (0.0-0.1); Basophils % 0.9 %; Eosinophils # 0.2 10^3/uL (0.0-0.8); Eosinophils % 1.9 %; Hematocrit 41.4 % (37-53); Lymphocytes # 1.6 10^3/uL (0.8-4.8); Lymphocytes % 14.3 %; Mean Corpuscular HGB Conc 31.9 g/dL (30-55); Mean Corpuscular Volume 97.2 fl (82-101); Mean Platelet Volume 9.3 fL (7.4-10.4); Monocytes # 0.9 10^3/uL (0.2-0.9); Monocytes % 8.5 %; Neutrophils # 7.82 10^3/uL (1.8-7.7); Neutrophils % 70.3 %; Nucleated Red Blood Cells % 0 %; Platelet Count 164 10^3/cmm (157-399); Red Blood Count 4.26 10^6/uL (3.85-5.65); Red Cell Distribution Width 14.2 % (12.1-15.1); White Blood Count 11.12 10^3/uL (3.29-11.43)
[2023-09-23 05:25] LABS: Alanine Aminotransferase 14 U/L (0-41); Albumin Level 2.9 g/dL (3.5-5.2); Alkaline Phosphatase 52 U/L (40-130); Anion Gap 10.6 (5-19); Aspartate Amino Transferase 13 U/L (0-40); Blood Urea Nitrogen 15 mg/dL (8-23); Calcium 8.3 mg/dL (8.5-10.5); Carbon Dioxide 30 mmol/L (22-29); Chloride 102 mmol/L (98-107); Globulin 1.1 g/dL (1.3-4.6); Glomerular Filtration Rate 96.4 mL/min (90-130); Glucose 101 mg/dL (65-115); Magnesium 1.9 mg/dL (1.7-2.3); Osmolality Calculated 289 mOsm/kg (285-295); Phosphorus 3.4 mg/dL (2.5-4.5); Potassium 3.6 mmol/L (3.5-5.1); Sodium 139 mmol/L (136-145); Total Bilirubin 1.1 mg/dL (0.15-1.2)
[2023-09-23 07:49] VITALS: BP 150/102; PULSE 102; RESP 22; TEMP 36.7; O2SAT 98
[2023-09-23] MEDS: budesonide 0.5 mg/2 mL Neb INHALATION (07:57)
[2023-09-23 07:59] VITALS: PULSE 100; RESP 16; O2SAT 98
--- NOTE | 2023-09-23 10:13 | PM.DCS ---
Discharge Providers Date of Admission: 09/21/23 13:56 Date of Discharge: September 23, 2023 Attending Provider at Admission: Zoya Michaels MD Attending Provider at Discharge: Dami Garcia MD Diagnoses at Discharge Discharge Diagnosis (1) Abdominal pain: Status: Acute (2) Diverticulitis: Status: Acute (3) COPD (chronic obstructive pulmonary disease): Status: Acute (4) Hospice care: Status: Acute Reason for Visit Reason for Visit: abd pain/ hernia Hospital Course Hospital Course Axel Landry is a 68 year old male with Past medical history of advanced COPD on chronic oxygen, hospice with [facility] was brought into the ER today because of worsening abdominal pain over the last 1 week. Patient states he has abdominal hernia for which she gets pain on and off but this time for last 1 week pain has been getting worse along with diarrhea for last 1 week. Currently pain is more in lower abdomen, cramping time not relieved after bowel movement. Last bowel movement was earlier today morning which showed diarrhea without any active signs of bleeding. Denies any nausea, vomiting but does state appetite has been decreasing. Patient on examination looks in respiratory distress which as per him is his baseline. Patient was admitted to the hospital further evaluation and management of colitis along with acute on chronic COPD. He was started on IV antibiotics, fluids and clear liquid diet. He responded well to the treatment and his symptoms of abdominal cramping and diarrhea resolved. Patient remained on his baseline respiratory status. He has been discharged in hemodynamically stable condition on oral ciprofloxacin and Flagyl. He is to continue using his inhaler as before but DuoNebs have been changed to every 6 hour hours and as needed. He is also being discharged on Advair. Multiple goals of care discussions were done in detail with the patient given his history of advanced severe COPD for which she is on hospice. It was discussed that unfortunately given his severe COPD he is at a higher risk of being ventilator dependent in case if he goes on mechanical ventilation. Patient verbalized understanding but wants to remain full code. Physical Exam Narrative: General: No acute distress, AO x3, NC oxygen supplementation HEENT: PERRLA, pupils bilaterally equal and reactive Chest: Bilateral bronchial breath sounds all over lung maldonado with diffuse rhonchi and crackles CVS: S1-S2 regular, no murmurs, no tachycardia, no gallops, no rubs Abdomen: Soft, tender in lower abdomen, no organomegaly, bowel sounds present sluggish, morbidly obese Neuro: No focal deficits, no facial deformity, AO x3, power 5/5 in all limbs Discharge Data Studies Completed and Pending Completed Studies During Hospitalization Category Date Time Status CT abdomen pelvis w con* [id number] Stat Cat Scan 09/21/23 12:09 Completed XR abdomen 1V* [id number] Stat Exams 09/21/23 11:23 Completed XR chest 1V portable [id number] Stat Exams 09/21/23 11:23 Completed Pending at discharge Category Date Time Status Blood Culture Stat Lab 09/21/23 13:50 Results Clostridium Difficile PCR Routine Lab 09/21/23 17:53 Ordered Lactoferrin Routine Lab 09/21/23 17:53 Ordered OVA and Parasites, Conc and PE Routine Lab 09/21/23 17:53 Ordered Salmonella / Shigella / Campy Routine Lab 09/21/23 17:53 Ordered Radiology Impressions Abdomen X-Ray 09/21/23 11:23 IMPRESSION: Nonspecific. Chest X-Ray 09/21/23 11:23 IMPRESSION: Acute cardiopulmonary disease. Laboratory Results WBC 11.12 10^3/uL (3.29-11.43) 09/23/23 04:28 RBC 4.26 10^6/uL (3.85-5.65) 09/23/23 04:28 Hgb 13.20 g/dL (11.27-16.99) 09/23/23 04:28 Hct 41.4 % (37-53) 09/23/23 04:28 MCV 97.2 fl (82-101) 09/23/23 04:28 MCH 31.0 pg (27-33) 09/23/23 04:28 MCHC 31.9 g/dL (30-55) 09/23/23 04:28 RDW 14.2 % (12.1-15.1) 09/23/23 04:28 Plt Count 164 10^3/cmm (157-399) 09/23/23 04:28 MPV 9.3 fL (7.4-10.4) 09/23/23 04:28 Neut % (Auto) 70.3 % 09/23/23 04:28 Lymph % (Auto) 14.3 % 09/23/23 04:28 [place] % (Auto) 8.5 % 09/23/23 04:28 Eos % (Auto) 1.9 % 09/23/23 04:28 Baso % (Auto) 0.9 % 09/23/23 04:28 Neut # (Auto) 7.82 10^3/uL (1.8-7.7) H 09/23/23 04:28 Lymph # (Auto) 1.6 10^3/uL (0.8-4.8) 09/23/23 04:28 [place] # (Auto) 0.9 10^3/uL (0.2-0.9) 09/23/23 04:28 Eos # (Auto) 0.2 10^3/uL (0.0-0.8) 09/23/23 04:28 Baso # (Auto) 0.1 10^3/uL (0.0-0.1) 09/23/23 04:28 Nucleated RBC % (auto) 0 % 09/23/23 04:28 Nucleated RBCs # 0.0 /100WBC 09/23/23 04:28 Sodium 139 mmol/L (136-145) 09/23/23 04:28 Potassium 3.6 mmol/L (3.5-5.1) 09/23/23 04:28 Chloride 102 mmol/L (98-107) 09/23/23 04:28 Carbon Dioxide 30 mmol/L (22-29) H 09/23/23 04:28 Anion Gap 10.6 (5-19) 09/23/23 04:28 BUN 15 mg/dL (8-23) 09/23/23 04:28 Creatinine 0.8 mg/dL (0.7-1.2) 09/23/23 04:28 GFR Calculation 96.4 mL/min (90-130) 09/23/23 04:28 Glucose 101 mg/dL (65-115) 09/23/23 04:28 Estimat Average Glucose 103 09/22/23 04:28 Hemoglobin A1c 5.2 % (4.0-6.0) 09/22/23 04:28 Calculated Osmolality 289 mOsm/kg (285-295) 09/23/23 04:28 Lactic Acid 0.6 mmol/L (0.5-2.2) 09/22/23 04:28 Lactic Acid (Sepsis) 1.1 mmol/L (0.5-2.2) 09/21/23 13:50 Calcium 8.3 mg/dL (8.5-10.5) L 09/23/23 04:28 Phosphorus 3.4 mg/dL (2.5-4.5) 09/23/23 04:28 Magnesium 1.9 mg/dL (1.7-2.3) 09/23/23 04:28 Iron 83 ug/dL (59-158) 09/21/23 11:31 TIBC 244 mcg/dl 09/21/23 11:31 % Saturation 34.0 % (20-50) 09/21/23 11:31 Unsat Iron Binding 161 ug/dL (112-347) 09/21/23 11:31 Total Bilirubin 1.1 mg/dL (0.15-1.2) 09/23/23 04:28 AST 13 U/L (0-40) 09/23/23 04:28 ALT 14 U/L (0-41) 09/23/23 04:28 Alkaline Phosphatase 52 U/L (40-130) 09/23/23 04:28 Total Protein 4.0 g/dL (6.6-8.7) L 09/23/23 04:28 Albumin 2.9 g/dL (3.5-5.2) L 09/23/23 04:28 Globulin 1.1 g/dL (1.3-4.6) L 09/23/23 04:28 Triglycerides 72 mg/dL (0-150) 09/22/23 04:28 Cholesterol 153 mg/dL (0-200) 09/22/23 04:28 LDL Cholesterol, Calc 80 mg/dL (50-129) 09/22/23 04:28 HDL Cholesterol 59 mg/dL (60-100) L 09/22/23 04:28 LDL/HDL Ratio 1.36 RATIO (0.00-3.22) 09/22/23 04:28 Cholesterol/HDL Ratio 2.59 mg/dL (1.0-5.00) 09/22/23 04:28 Vitamin B12 353 pg/mL (232-1245) 09/21/23 11:31 Folate 6.8 ng/mL (4.5-32.2) 09/22/23 04:28 Procalcitonin 0.06 ng/mL (0-0.5) 09/21/23 11: TSH 0.84 uIU/mL (0.27-4.20) 09/21/23 11:31 Urine Color Yellow (Yellow) 09/21/23 18:25 Urine Appearance Clear (CLEAR) 09/21/23 18:25 Urine pH 7 (5-7) 09/21/23 18:25 Ur Specific [place] 1.010 (1.005-1.030) 09/21/23 18:25 Urine Protein Neg (Negative) 09/21/23 18:25 Urine Glucose (UA) Norm (Normal) 09/21/23 18:25 Urine Ketones Negative (Negative) 09/21/23 18:25 Urine Blood 2+ (Negative) H 09/21/23 18:25 Urine Nitrate Negative (Negative) 09/21/23 18:25 Urine Bilirubin Neg (Negative) 09/21/23 18:25 Urine Urobilinogen Norm mg/dL (Negative) 09/21/23 18:25 Ur Leukocyte Esterase Negative (Negative) 09/21/23 18:25 Urine RBC 0-4 /hpf (0-2) H 09/21/23 18:25 Urine WBC 0-4 /hpf (0-5) H 09/21/23 18:25 Ur Squamous Epith Cells None /hpf (0-5) 09/21/23 18:25 Calcium Oxalate Crystal 15-25 /hpf H 09/21/23 18:25 Amorphous Sediment Not Reportable 09/21/23 18:25 Urine Bacteria Trace /hpf (NONE) 09/21/23 18:25 Urine Mucus Trace /hpf 09/21/23 18:25 Vitals Last Vital Signs Temp 98.0 F 09/23/23 07:49 Pulse 100 09/23/23 07:59 Resp 16 09/23/23 07:59 BP 150/102 09/23/23 07:49 Pulse Ox 98 09/23/23 07:59 O2 Del Method Nasal Cannula 09/23/23 07:59 O2 Flow Rate 2 09/23/23 08:00 Discharge Plan Discharge Patient Disposition: Home Condition: Stable Prescriptions: New Breo Ellipta 200-25 mcg/dose blister with device 1 inh inhalation DAILY Qty: 60 0RF ciprofloxacin HCl 500 mg tablet 500 mg PO Q12H Qty: 10 0RF metronidazole 500 mg tablet 500 mg PO Q8H 5 Days Qty: 15 0RF Continued albuterol sulfate 2.5 mg /3 mL (0.083 %) solution for nebulization 2.5 mg continuous nebulization QID PRN (Reason: Shortness Of Breath Or Wheezing) albuterol sulfate 90 mcg/actuation HFA aerosol inhaler 2 puff INHALATION Q4H PRN (Reason: Shortness Of Breath Or Wheezing) guaifenesin [Mucinex] 600 mg tablet extended release 12hr 600 mg PO BID PRN (Reason: Congestion) Changed ipratropium-albuterol 0.5 mg-3 mg(2.5 mg base)/3 mL solution for nebulization 3 ml INHALATION QID Qty: 180 0RF Discontinued prednisone 10 mg tablet 10 mg PO BID Discharge Orders: Discharge Order (Routine); Ordered 09/23/23 Ordered By: Dami Garcia Discharge Diet: Advance as tolerated and Full LIquid Discharge Activity: Resume usual activity and Increase activity as tolerated Patient Instructions: Ciprofloxacin (By mouth), Metronidazole (By mouth), Fluticasone/Vilanterol (By breathing), Opioid Safety Activity Restrictions/Additional Instructions: Please follow up with primary care provider as needed. Discharge Attestations Time Spent in Discharge Care*: greater than 30 min Specific Discharge Activities: educating patient, educating and/or supporting family/caregiver, discussing with pcp/other providers, discussing with shoe parts caser/social workers/dc planners, documenting/other paperwork and evaluating patient/reviewing data Time Spent in Smoking Cessation: more than 10 minutes Quality Metrics Clinical Quality Measures [ No reported AMI, CVA or VTE this stay] Coding Level of Care Code 94041 Total time (in minutes) for Discharge: 60 Diagnoses Abdominal pain R10.9 Diverticulitis K57.92 COPD (chronic obstructive pulmonary disease) J44.9 Hospice care Z51.5
--- NOTE | 2023-09-23 10:16 | PC.CHAP ---
Pastoral Care Encounter/Spiritual Assessment Type of Contact [] Declined demand inspector visit [] Patient/Family/Request visit [] Outpatient visit [] Follow-up visit [] Physician referral [] Code/Alert [] Routine visit [] Staff referral [] Actively dying [] Patient sleeping [] Family support [] [] Out of room [] Palliative care [] [] Receiving care in room [] Pre-surgical visit [] Trauma [] Long length of stay [] ICU visit [] Other: Relational/Emotional Strength [] Patient feels connected with others/family/visitors/staff [] Distress [] Loneliness/isolation [] Abandonment Spirituality of Patient [] Person of Susana [] Attends Church of their Susana [] Believes in Prayer [] Reads Bible or Adventist materials [] There are Spiritual issues to be addressed Principal Technologist Interventions [x] Prayer [] Active listening [] Non-anxious presence [x] Spiritual/emotional support [] Crisis/trauma care [] Spiritual counseling [] Bereavement support [] Provided bereavement packet [] Provided Bible/devotional materials [] Provided toy/stuffed animal, coloring book to patient or family member [] Provided Communion [] Anointing/[place] [] Salvation [] Completed spiritual assessment [] Other: Impact on Illness or Injury [x] Angry [] Fearful [] Anxious [] Often cries [] Exhaustion [] Unable to work [] Unable to attend latter-day [] Unable to walk/stand [] Unable to read [] Unable to drive [] Unable to eat/drink [] Unable to sleep [] Unable to be with family [] Patient intubated [] Other: Summary Axel was very angry , hurting, emotionally as well as physically. Prayed for him, he refused prayer Prayed for His SOUL Time spent with patient 10 min
[2023-09-23] MEDS: amlodipine 5 mg Tablet PO (10:58)
[2023-09-23 11:27] VITALS: BP 143/101; PULSE 91; RESP 20; TEMP 36.4; O2SAT 99
== END 2023-09-23 14:04 | disposition hospice, home (50) | DRG 392 ==
LOC: ER 11:46 → ER IP 14:20 → MEDSURG 18:40
PROVIDERS: Admitting Provider Student in an Organized Health Care Education/Training Program; Emergency Provider Internal Medicine; Visit Provider Student in an Organized Health Care Education/Training Program
DX: K57.32 Diverticulitis of large intestine without perforation or abscess without bleeding (principal); J44.9 Chronic obstructive pulmonary disease, unspecified; F17.210 Nicotine dependence, cigarettes, uncomplicated; Z99.81 Dependence on supplemental oxygen; K46.9 Unspecified abdominal hernia without obstruction or gangrene
CPT/HCPCS: 36415; 71045; 74018; 74177; 80053; 80061; 81001; 82607; 82746; 83036; 83540; 83550; 83605; 83735; 84100; 84145; 84443; 85025; 87040; 94640; 96365; 96367; 96372; 99285; C9113; J1644; J1956; J2543; J3490; J7120; J7626; Q9967